=== PATIENT | female | born 1940 | race Caucasian/White ===

== ENCOUNTER → 2018-10-07 14:16 | Outpatient (CLI) | payer MEDICARE, OTHER, SELFPAY ==
--- NOTE | 2018-10-07 14:19 | DI.RAD.S_ITS ---
PROCEDURE: XR THORACIC SPINE 3V INDICATIONS: back pain TECHNIQUE: 2 views of the thoracic spine were acquired. COMPARISON: [facility], , THORACIC SPINE 3 VIEWS, 02/08/2017, 11:35. FINDINGS: Bones: No fractures or dislocations. No suspicious bony lesions. 12 pairs of ribs are noted, and appear intact where visualized. 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 Only a slight worsening from 2017 is identified. Soft tissues: No paravertebral stripe thickening. IMPRESSION: Slight interval worsening of midthoracic degenerative disc disease without subluxation or evidence of prior compression fracture. No acute disease. Dictated by: Jarred Archibald M.D. on 10/07/2018 at 15:08 Approved by: Jarred Archibald M.D. on 10/07/2018 at 15:09
--- NOTE | 2018-10-07 14:19 | DI.RAD.S_ITS ---
PROCEDURE: XR LUMBAR SPINE 2-3V INDICATIONS: back pain TECHNIQUE: 3 views of the lumbar spine were acquired. COMPARISON: [facility], , THORACIC SPINE 3 VIEWS, 02/08/2017, 11:35. FINDINGS: Bones: 5 [id number] vertebrae are present. There is levoscoliotic bony alignment centered at L2,. No vertebral body compression fractures. No suspicious bony lesions. Soft tissues: Overlying bowel gas pattern is normal. No suspicious soft tissue calcifications. IMPRESSION: Mild convex leftward scoliosis centered at L2. A comparison rior study through this area is not available for review. If acute compression fracture is clinically suspected as the underlying cause MR scanning may be warranted. From the lateral view of the lumbosacral spine a compression fracture, however, is not suspected. Dictated by: Jarred Archibald M.D. on 10/07/2018 at 15:09 Approved by: Jarred Archibald M.D. on 10/07/2018 at 15:11
--- NOTE | 2018-10-07 14:19 | DI.RAD.S_ITS ---
PROCEDURE: XR CERVICAL SPINE 2V OR 3V INDICATIONS: back pain TECHNIQUE: Pre-view(s) of the cervical spine were acquired. COMPARISON: None. FINDINGS: Bones: No fractures or dislocations to the T1 level. The lateral masses of C1 appear intact on the odontoid view. No suspicious bony lesions. Soft tissues: No prevertebral soft tissue swelling. IMPRESSION: Moderately severe C5-6 degenerative disc that reduction and endplate osteophyte formation anteriorly. 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 Dictated by: Jarred Archibald M.D. on 10/07/2018 at 15:07 Approved by: Jarred Archibald M.D. on 10/07/2018 at 15:08
--- NOTE | 2018-10-07 14:19 | DI.RAD.S_ITS ---
PROCEDURE: XR SACRUM COCCYX MIN 2V INDICATIONS: back pain TECHNIQUE: 3 views of the sacrum and coccyx acquired. COMPARISON: None. FINDINGS: Bones: No fractures or dislocations but there is mild degenerative sacroiliac osteoarthritis. No suspicious bony lesions. Soft tissues: Visualized bowel gas pattern is normal. No suspicious soft tissue densities. IMPRESSION: No trauma. Mild degenerative change at the sacroiliac joints are symmetric bilaterally without evidence of ankylosing spondylitis or other spondyloarthropathy. Dictated by: Jarred Archibald M.D. on 10/07/2018 at 15:11 Approved by: Jarred Archibald M.D. on 10/07/2018 at 15:11
== END ==
PROVIDERS: Visit Provider Physician Assistant
DX: M54.9 Dorsalgia, unspecified (principal); M50.322 Other cervical disc degeneration at C5-C6 level; M48.02 Spinal stenosis, cervical region; M47.812 Spondylosis without myelopathy or radiculopathy, cervical region; M51.34 Other intervertebral disc degeneration, thoracic region; M41.86 Other forms of scoliosis, lumbar region; M47.818 Spondylosis without myelopathy or radiculopathy, sacral and sacrococcygeal region
CPT/HCPCS: 72040; 72072; 72100; 72220

== ENCOUNTER 2019-01-24 08:13 | Inpatient (IN) | payer MEDICARE, OTHER, SELFPAY ==
[2019-01-24] VITALS (17 sets, daily range): BP systolic 110–187; BP diastolic 62–95; PULSE 60–86; RESP 12–20; TEMP 36–36.9; O2SAT 95–100; BMI 23.9; BMI 24.3
--- NOTE | 2019-01-24 | DI.RAD.S_ITS ---
PROCEDURE: XR HIP W PEL IF DONE LT 2V INDICATIONS: POST OPERATIVE LEFT HIP TECHNIQUE: AP pelvis and lateral view of the left hip hip acquired. COMPARISON: [facility], CR, XR HIP W PEL IF DONE LT 2V, 01/24/2019, 8:30. [facility], CR, XR CHEST 1V, 01/24/2019, 9:56. FINDINGS: Bones: Patient is status post left hip arthroplasty, with hardware components in expected positions. The hip joint appears congruent. The visualized bony structures appear intact. Soft tissues: Overlying postoperative changes are noted. No suspicious soft tissue densities. IMPRESSION: Normal alignment after left total hip arthroplasty. A surgical drain overlies the operative bed. Dictated by: Jarred Archibald M.D. on 01/24/2019 at 20:17 Approved by: Jarred Archibald M.D. on 01/24/2019 at 20:18
--- NOTE | 2019-01-24 08:27 | DI.RAD.S_ITS ---
PROCEDURE: XR HIP W PEL IF DONE LT 2V INDICATIONS: fall/pain L hip TECHNIQUE: AP pelvis with lateral view(s) of the left hip(s). COMPARISON: None. FINDINGS: Bones: There is a comminuted, foreshortened, moderately angulated fracture seen of the mid left femoral neck. No dislocation can be seen. No fractures the bones of the pelvis can be seen. No suspicious lytic or blastic lesions are seen. Age-appropriate bony degenerative changes are seen. Soft tissues: The visualized bowel gas pattern is normal. No suspicious soft tissue calcifications. IMPRESSION: Left femoral neck fracture. If it would be helpful for clinical management decision making, please consider a dedicated hip CT. Dictated by: Ty Miramontes M.D. on 01/24/2019 at 7:53 Approved by: Ty Miramontes M.D. on 01/24/2019 at 7:55
--- NOTE | 2019-01-24 08:28 | PC.NURSE ---
Patient caught foot while getting off boat. [place] an initial sharp pain but was unable to move and ambulate fall. Patient has no shortening or rotation. CMS intact. Pain worse with any movement.
--- NOTE | 2019-01-24 08:34 | ED_ITS ---
HPI - Extremity Injury (Lower) General Chief Complaint: Extremity Injury, Lower Stated Complaint: fell, L hip pain Time Seen by Provider: 01/24/19 08:27 Source: patient and EMS Mode of arrival: EMS Limitations: no limitations History of Present Illness HPI Narrative: Patient states that she caught her foot while stepping off her boat, and fell onto her left hip on the concrete doc surface. Patient states that she felt a sharp pain in her left groin area, but this was short lived and did not really hurt after that unless she tried to move. Patient states she did not get up, because of the pain because she was afraid that if she had broken something she would make it worse by standing on it. The patient states she was not hurt in any other way, other than scrapes and bruises. She states she is otherwise healthy, and does not take any regular medications. Patient has not been ill with anything recently. She denies any other complaints at this time. No back or neck pain. She did not hit her head or lose consciousness. No other extremity pain. She states that her left knee and ankle feel fine. He medics report the patient has had good pulses and sensation during transport. Patient denies rib pain or pain with inspiration. Related Data Home Medications Medication Instructions Recorded Confirmed ibuprofen 1 dose PO PRN PRN 01/24/19 01/24/19 multivitamin 1 tab PO DAILY 01/24/19 01/24/19 multivitamin with minerals 1 tab PO DAILY 01/24/19 01/24/19 [Hair,Skin and Nails] Previous Rx's Medication Instructions Recorded acetaminophen 975 mg PO TID #0 tab 01/25/19 aspirin 81 mg PO BID #0 tab 01/25/19 docusate sodium [DOK] 100 mg PO BID #0 cap 01/25/19 hydrocodone-acetaminophen 1 tab PO Q4HR PRN #40 tab 01/25/19 Allergies Allergy/AdvReac Type Severity Reaction Status Date / Time naproxen Allergy Severe Swelling Verified 01/24/19 16:46 of Lip/Tongue/Throat dimenhydrinate Allergy Intermediate hives Verified 01/24/19 16:46 [From Dramamine] diphenhydramine Allergy Intermediate hives Verified 01/24/19 16:46 [From Tylenol PM] meperidine [From Demerol] Allergy Intermediate hives Verified 01/24/19 16:46 oxycodone Allergy Intermediate hives Verified 01/24/19 16:46 Review of Systems Constitutional Denies chills, Denies fever(s), Denies lethargy and Denies weakness Eyes Denies change in vision, Denies eye discharge, Denies irritation and Denies loss of vision ENT Ears, Nose, Mouth, and Throat: Denies change in voice, Denies neck pain and Denies sore throat Cardiovascular Denies chest pain, Denies irregular heart rhythm, Denies lightheadedness, Denies palpitations, Denies dyspnea, Denies dyspnea on exertion and Denies orthopnea Respiratory Denies cough, Denies dyspnea, Denies dyspnea on exertion and Denies wheezing Gastrointestinal Gastrointestinal: Denies abdominal pain, Denies change in bowel habits, Denies diarrhea, Denies nausea and Denies vomiting Genitourinary Denies hematuria, Denies flank pain, Denies urinary incontinence and Denies urinary urgency Musculoskeletal Denies neck pain Comments: Left hip pain Integumentary/Breasts Denies pruritus, Denies erythema, Denies rash and Denies wounds Neurologic Denies confusion, Denies loss of vision and Denies weakness Psychiatric Denies anxiety, Denies confusion, Denies depression, Denies homicidal ideation and Denies suicidal ideation Endocrine Denies palpitations Hematologic/Lymphatic Denies easy bruising Allergic/Immunologic Denies wheezing PFSH Medical History Healthy adult (Acute) Normal colonoscopy (Acute) Right shoulder injury (Acute) Surgical History (Updated 01/24/19 @ 12:25 by Jovana Kidd RN) No pertinent past surgical history (Acute) Hx of cholecystectomy (Acute) Social History household members: spouse Smoking Status: Never smoker Social History household members: spouse Smoking Status: Never smoker Exam Initial Vital Signs Initial Vital Signs: Vital Signs Temperature 98.2 F 01/24/19 08:12 Pulse Rate 82 01/24/19 08:12 Respiratory Rate 16 01/24/19 08:12 Blood Pressure 187/86 H 01/24/19 08:12 Pulse Oximetry 100 01/24/19 08:12 Const General: cooperative and well developed Nutritional Appearance: well nourished Orientation: alert, awake, oriented x3 and not confused [facility] Head: normocephalic and atraumatic Ears: external ears normal Nose: external nose normal and No nasal discharge Face and sinus: face symmetric and No dry mucous membranes Mouth: oral mucosae normal and moist mucous membranes Teeth and gingiva: dentition normal Eyes General: appearance normal, both eyes and all related structures Eyelids: eyelids normal Conjunctivae: conjunctivae normal Sclera: sclerae normal Pupils: PERRL EOM: EOM intact bilaterally Neck Neck: normal visual inspection, trachea midline, No lymphadenopathy, No midline deformity and No JVD Lymphatic: No lymphedema Chest Chest: normal inspection of the chest Other: No chest/rib tenderness Resp Effort & Inspection: normal respiratory effort, able to speak in complete sentences, no respiratory distress and no use of accessory muscles Auscultation: clear to auscultation bilaterally, no rales, no rhonchi and no wheezes Cardio Rate: regular rate Rhythm: regular rhythm Heart Sounds: no click, no gallops, no murmurs and no rubs Pulses: normal peripheral pulses GI Inspection: non-distended Palpation: soft, no hepatosplenomegaly, No guarding, No pulsatile mass and No tender Back/Spine/Pelvis Back: No CVA tenderness Cervical Spine: cervical ROM normal and No pain with cervical ROM Thoracic/Lumbar Spine: thoracic and lumbar spine normal to inspection Other: There is no tenderness to lateral or AP pressure/compression of the pelvis. Skin General: no rashes or lesions noted, No jaundice and No petechiae Other: Small abrasions on left knee and bilateral bases of palms. Neuro General: alert, oriented x3, gait normal and no focal motor deficits Speech: speech normal Extrem General: full ROM, no clubbing, cyanosis or edema, no pedal edema and no calf tenderness Other: Patient has no point tenderness at any level of her left lower extremity. She has nearly full passive range of motion of her left lower extremity at the hip, though she does complain of some pain with internal rotation, especially with increased flexion at the hip. Patient is able to hold her extended left leg suspended in mid-air while we remove her pants. Psych Appearance: well kempt Mental Status: mental status grossly normal Attitude: cooperative Thought Content: normal and suicidality Judgment: judgment good Course Course Narrative: Patient declined pain medication, and was worked up initially with an x-ray series of her left hip and pelvis. Patient was found to have a left femoral neck fracture. I spoke with Dr. Yelena Bowman of Orthopedics, and she did agree to admit the patient to her service. I discussed the findings with the patient and her , and they were agreeable to the plan for admission and surgical repair. Preoperative labs, chest x-ray, and EKG were performed, and were found to be unremarkable. Orders Ordered: Discontinued Medications Acetaminophen (Tylenol) 975 mg PO TID [facility] Last Admin: 01/25/19 08:54 Dose: 650 mg Admin: 01/24/19 21:39 Dose: 975 mg Hydrocodone Bitart/Acetaminophen ([place] 5/325) 1 tab PO Q4HR PRN PRN Reason: Pain, Moderate (4-6) Last Admin: 01/25/19 13:17 Dose: 1 tab Admin: 01/25/19 08:52 Dose: 1 tab Admin: 01/25/19 04:41 Dose: 1 tab Admin: 01/25/19 00:54 Dose: 1 tab Aspirin (Aspirin Ec) 81 mg PO BID [facility] Last Admin: 01/25/19 08:54 Dose: 81 mg Admin: 01/24/19 21:39 Dose: 81 mg Bupivacaine HCl/Epinephrine Bitart (Sensorcaine 0.25% W/ Epi (Pf)) 60 ml INJ INTRA-OP ONE Stop: 01/24/19 17:12 Last Admin: 01/24/19 18:17 Dose: 60 ml Bupivacaine Liposome (Exparel) 266 mg INJ INTRA-OP ONE Stop: 01/24/19 17:12 Last Admin: 01/24/19 18:17 Dose: 266 mg Povidone Iodine 15 ml/ Sodium (Chloride 250 ml) 0 ml TOP NOW ONE Stop: 01/24/19 17:12 Last Admin: 01/24/19 18:19 Dose: 265 ml Sodium Chloride 250 ml/ (Epinephrine HCl 1 mg) 0 ml IRR INTRA-OP ONE Stop: 01/24/19 18:21 Last Admin: 01/24/19 18:21 Dose: 251 ml Docusate Sodium (Colace) 100 mg PO BID [facility] Last Admin: 01/25/19 08:54 Dose: 100 mg Admin: 01/24/19 21:39 Dose: 100 mg Fentanyl (Sublimaze) 50 mcg IV Q5MIN PRN PRN Reason: Pain, Moderate (4-6) Hydromorphone HCl (Dilaudid) 2 mg IV Q4HR PRN PRN Reason: Pain, Mild (1-3) Last Admin: 01/24/19 14:07 Dose: 1 mg Hydromorphone HCl (Dilaudid) 0.5 mg IV Q5MIN PRN PRN Reason: Pain, Moderate (4-6) Sodium Chloride (Normal Saline 0.9%) 1,000 mls @ 1,000 mls/hr IV BOLUS ONE Stop: 01/24/19 10:51 Last Admin: 01/24/19 11:30 Dose: Not Given Sodium Chloride (Normal Saline 0.9%) 1,000 mls @ 125 mls/hr IV CONT [facility] Last Infusion: 01/24/19 16:10 Dose: 0 mls/hr Admin: 01/24/19 11:30 Dose: 125 mls/hr Lactated Ringer's (Lactated Ringers) 1,000 mls @ 42 mls/hr IV NOW ONE Stop: 01/25/19 16:27 Last Infusion: 01/24/19 19:58 Dose: 0 mls/hr Admin: 01/24/19 16:40 Dose: 42 mls/hr Vancomycin HCl/Dextrose (Vancomycin) 1,000 mg in 200 mls @ 200 mls/hr IV NOW ONE Stop: 01/24/19 17:51 Last Infusion: 01/24/19 17:45 Dose: 0 mls/hr Admin: 01/24/19 16:53 Dose: 200 mls/hr Cefazolin Sodium/Dextrose (Ancef) 2 gm in 100 mls @ 200 mls/hr IV NOW ONE Stop: 01/24/19 17:40 Last Admin: 01/24/19 17:45 Dose: 200 mls/hr Lactated Ringer's (Lactated Ringers) 1,000 mls @ 125 mls/hr IV CONT [facility] Last Infusion: 01/25/19 05:37 Dose: 0 mls/hr Admin: 01/24/19 20:30 Dose: 125 mls/hr Cefazolin Sodium/Dextrose (Ancef) 2 gm in 100 mls @ 200 mls/hr IV Q8H [facility] Stop: 01/25/19 10:29 Last Infusion: 01/25/19 11:38 Dose: 0 mls/hr Admin: 01/25/19 10:21 Dose: 200 mls/hr Infusion: 01/25/19 03:16 Dose: 0 mls/hr Admin: 01/25/19 02:35 Dose: 200 mls/hr Sodium Chloride (Normal Saline 0.9%) 250 mls @ 21 mls/hr IV Q24H PRN PRN Reason: Flush Last Infusion: 01/25/19 11:38 Dose: 0 mls/hr Admin: 01/25/19 10:20 Dose: 21 mls/hr Ibuprofen (Advil) 200 mg PO Q4H PRN PRN Reason: pain Last Admin: 01/25/19 13:30 Dose: 200 mg Admin: 01/25/19 03:53 Dose: 200 mg Metoclopramide HCl (Reglan) 10 mg IV NOW PRN PRN Reason: Nausea And Vomiting Multivitamins (Tab-A-Gregorio) 1 tab PO DAILY [facility] Last Admin: 01/25/19 08:54 Dose: 1 tab Multivitamins/Calcium (Thera M Plus) 1 tab PO DAILY [facility] Last Admin: 01/25/19 08:54 Dose: 1 tab Ondansetron HCl (Zofran) 4 mg IV NOW PRN PRN Reason: Nausea And Vomiting Ondansetron HCl (Zofran) 4 mg IV Q4HR PRN PRN Reason: Nausea And Vomiting Ondansetron HCl (Zofran Odt) 4 mg PO Q4HR PRN PRN Reason: Nausea Polyethylene Glycol (Miralax) 17 gm PO DAILY PRN PRN Reason: Constipation Sodium Chloride (Normal Saline 0.9% Flush) 10 ml IV BID [facility] Last Admin: 01/25/19 10:20 Dose: 10 ml Sodium Chloride (Normal Saline 0.9% Flush) 10 ml IV PRN PRN PRN Reason: Flush Tranexamic Acid (Cyklokapron) 2,000 mg INJ INTRA-OP ONE Stop: 01/24/19 17:12 Last Admin: 01/24/19 19:24 Dose: 1,000 mg Admin: 01/24/19 18:19 Dose: 1,000 mg Vital Signs - 8 hr 01/24/19 08:12 Temperature 98.2 F Pulse Rate 82 Respiratory Rate 16 Blood Pressure 187/86 H Pulse Oximetry 100 MDM - Extremity Injury (Lower) Medical Records Attestation: I reviewed the patient's medical records. Lab Data Attestation: I reviewed the patient's lab results. Result diagrams: 01/25/19 05:05 01/24/19 09:18 Lab Results 01/24/19 01/24/19 01/25/19 Range/Units 09:18 09:18 05:05 WBC 6.5 (4.5-11.0) X10^3/uL RBC 4.36 (4.0-5.2) X10^6/uL Hgb 14.9 13.6 (12.0-16.0) g/dL Hct 44.3 41.1 (36-46) % MCV 101.5 H (80-100) fL MCH 34.0 (26-34) PG MCHC 33.5 (30-36) % RDW 12.9 (11.6-14.8) % Plt Count 255 (150-400) X10^3/uL Neut % (Auto) 78.0 H (50-75) % Lymph % (Auto) 13.8 L (25-40) % Bond % (Auto) 6.9 (3-14) % Eos % (Auto) 0.9 L (2-4) % Baso % (Auto) 0.4 (0-2) % Neut # (Auto) 5000 (2797-5151) /uL Lymph # (Auto) 900 L (4199-8566) /uL Bond # (Auto) 400 (0-900) /uL Eos # (Auto) 100 (0-450) /uL Baso # (Auto) 0 (0-100) /uL Sodium 139 (137-145) mmol/L Potassium 4.2 (3.4-5.1) mmol/L Chloride 106 (98-107) mmol/L Carbon Dioxide 28 (22-32) mmol/L BUN 17 (7-17) mg/dL Creatinine 0.60 (0.52-1.04) mg/dL Estimated GFR > 60.0 (>60) mL/min BUN/Creatinine Ratio 28.3 H (6-22) Glucose 108 (80-110) mg/dL Calcium 9.2 (8.4-10.2) mg/dL Total Bilirubin 0.8 (0.2-1.3) mg/dL AST 36 (14-36) IU/L ALT 16 (9-52) IU/L Alkaline Phosphatase 72 (38-126) U/L Total Protein 6.7 (6.3-8.2) g/dL Albumin 4.1 (3.5-5.0) g/dL Globulin 2.6 (1.7-4.1) g/dL Albumin/Globulin Ratio 1.6 (1.0-2.8) Point of Care Testing Test Results Not applicable Imaging Data Left hip x-ray: Radiologist's impression: PROCEDURE: XR HIP W PEL IF DONE LT 2V INDICATIONS: fall/pain L hip TECHNIQUE: AP pelvis with lateral view(s) of the left hip(s). COMPARISON: None. FINDINGS: Bones: There is a comminuted, foreshortened, moderately angulated fracture seen of the mid left femoral neck. No dislocation can be seen. No fractures the bones of the pelvis can be seen. No suspicious lytic or blastic lesions are seen. Age-appropriate bony degenerative changes are seen. Soft tissues: The visualized bowel gas pattern is normal. No suspicious soft tissue calcifications. IMPRESSION: Left femoral neck fracture. If it would be helpful for clinical management decision making, please consider a dedicated hip CT. Dictated by: Ty Miramontes M.D. on 01/24/2019 at 7:53 Approved by: Ty Miramontes M.D. on 01/24/2019 at 7:55 Chest x-ray: Attestation: I personally reviewed and interpreted this imaging study as follows: My impression: Negative Radiologist's impression: PROCEDURE: XR CHEST 1V INDICATIONS: pre-op TECHNIQUE: One view of the chest was acquired. COMPARISON: None. FINDINGS: Surgical changes and devices: None. Lungs and pleura: Lungs are clear. No pleural effusions or pneumothorax. Mediastinum: Mediastinal contours appear normal. Heart size is normal. Bones and chest wall: No suspicious bony lesions. Overlying soft tissues appear unremarkable. IMPRESSION: No acute process. Dictated by: Yazmin Boyd M.D. on 01/24/2019 at 10:08 Approved by: Yazmin Boyd M.D. on 01/24/2019 at 10:08 ECG Data Attestation: I personally reviewed and interpreted this ECG as follows: (See below) Interpretation: Twelve lead EKG performed January 24, 2019, at 10:17 a.m., as follows: Regular ventricular rhythm with a rate of 64 beats per minute PA interval 166 millisecond QRS duration 82 millisecond QTC interval [address] segment elevation or depression T waves normal morphology and size Interpretation: Normal sinus rhythm, no signs of acute ischemia; normal EKG as interpreted by ED MD. Discharge Plan Departure Patient Disposition: Home Clinical Impression: Fracture of hip Qualifiers: Encounter type: initial encounter Fracture type: closed Laterality: left Qualified Code(s): S72.002A - Fracture of unspecified part of neck of left femur, initial encounter for closed fracture Discharge Date/Time: 01/24/19 11:52 Interventions: ED Discharge Assessment Last Done: 01/24/19 11:52 Admit Date/Time: 01/24/19 09:54 Admit Provider: Yelena Bowman
--- NOTE | 2019-01-24 09:51 | DI.RAD.S_ITS ---
PROCEDURE: XR CHEST 1V INDICATIONS: pre-op TECHNIQUE: One view of the chest was acquired. COMPARISON: None. FINDINGS: Surgical changes and devices: None. Lungs and pleura: Lungs are clear. No pleural effusions or pneumothorax. Mediastinum: Mediastinal contours appear normal. Heart size is normal. Bones and chest wall: No suspicious bony lesions. Overlying soft tissues appear unremarkable. IMPRESSION: No acute process. Dictated by: Yazmin Boyd M.D. on 01/24/2019 at 10:08 Approved by: Yazmin Boyd M.D. on 01/24/2019 at 10:08
[2019-01-24 10:04] LABS: Add Manual Diff / Slide Review NO; Basophils Absolute Auto 0 /uL (0-100); Basophils Percent Auto 0.4 % (0-2); Eosinophils Absolute Auto 100 /uL (0-450); Eosinophils Percent Auto 0.9 % (2-4); Hematocrit 44.3 % (36-46); Hemoglobin 14.9 g/dL (12.0-16.0); Lymphocytes Absolute Auto 900 /uL (1100-4500); Lymphocytes Percent Auto 13.8 % (25-40); Mean Corpuscular HGB Conc 33.5 % (30-36); Mean Corpuscular Volume 101.5 fL (80-100); Monocytes Absolute Auto 400 /uL (0-900); Monocytes Percent Auto 6.9 % (3-14); Neutrophils Absolute Auto 5000 /uL (1500-7000); Platelet Count 255 X10^3/uL (150-400); Red Blood Cell Count 4.36 X10^6/uL (4.0-5.2); Red Cell Distribution Width 12.9 % (11.6-14.8); White Blood Cell Count 6.5 X10^3/uL (4.5-11.0)
[2019-01-24 10:08] LABS: Alanine Aminotransferase 16 IU/L (9-52); Albumin 4.1 g/dL (3.5-5.0); Albumin Globulin Ratio 1.6 (1.0-2.8); Alkaline Phosphatase 72 U/L (38-126); Aspartate Aminotransferase 36 IU/L (14-36); BUN Creatinine Ratio 28.3 (6-22); Bilirubin Total 0.8 mg/dL (0.2-1.3); Blood Urea Nitrogen 17 mg/dL (7-17); Calcium 9.2 mg/dL (8.4-10.2); Carbon Dioxide 28 mmol/L (22-32); Chloride 106 mmol/L (98-107); Estimated Glomerular Filt Rate > 60.0 mL/min (>60); Globulin 2.6 g/dL (1.7-4.1); Glucose 108 mg/dL (80-110); HEMOLYSIS 31 (0-50); Potassium 4.2 mmol/L (3.4-5.1); Sodium 139 mmol/L (137-145); Total Protein 6.7 g/dL (6.3-8.2)
[2019-01-24] MEDS: SODIUM CHLORIDE 0.9% 1,000 ML 125 ML IV (11:30)
--- NOTE | 2019-01-24 13:25 | PC.NURSE ---
Patient requested to clean up wounds on hands from her fall. Abrasions on the L palm and fingers, right pinkie finger palmar surface, and Left knee. Flushed all abrasions with saline, and patted dry with sterile gauze. Applied dressings to the abrasions on the hands only. SN Gilbert.
--- NOTE | 2019-01-24 13:33 | PC.NURSE ---
Day Shift- Report rec'd from MARC Doran in ED at 1148, Pt arrived to room 225 via stretcher at 1200, assisted to bed with 3PA using slider board. Pt's [place] in room. Pt oriented to call light, NPO status. Last ate solid food for dinner around 1999 and last had liquids-coffee at 0600 this AM. Rates 4/10 deep ache pain to left hip area. Discussed pain management plan, no prn's at this time. Awaiting surgery around 1700 at this time, aware that time may change.
[2019-01-24] MEDS: HYDROMORPHONE 2 MG INJ IV (14:07)
[2019-01-24] MEDS: LACTATED RINGERS 1,000 ML 42 ML IV (16:40)
[2019-01-24] MEDS: VANCOMYCIN 1,000 MG/200 ML FROZ.PIGGY 200 MG IV (16:53)
--- NOTE | 2019-01-24 17:24 | P.HP_ITS ---
History of Present Illness Date Patient Seen: 01/24/19 Time Patient Seen: 17:17 Chief complaint: fell, L hip pain Narrative: This is a pleasant 78-year-old female who was getting off of her s ailboat today when her foot got caught and she fell and noted the acute onset of left hip pain. She also notes that she had minor injuries to her hands. She denies other injury. She did not have a loss of consciousness. She denies any dizziness chest pain or difficulties prior to her fall and just tripped on the dock. She notes severe left hip pain. Patient History Medical History Healthy adult (Acute) Normal colonoscopy (Acute) Right shoulder injury (Acute) Surgical History (Updated 01/24/19 @ 12:25 by Jovana Kidd RN) No pertinent past surgical history (Acute) Hx of cholecystectomy (Acute) Social History household members: spouse Smoking Status: Never smoker Family & Social History Social History: household members spouse Prior Living Arrangements House Safety & Behavioral: Feels Safe in Current Yes Environment Been Physically Hurt or No Threatened By a Person Suicidal Ideation Description None Suicide Plan Description No Plan Tobacco & Substance use: Smoking Status Never smoker alcohol intake frequency a few times a week Substance Use Type does not use Meds Home Medications Medication Instructions Recorded Confirmed Type ibuprofen 1 dose PO PRN PRN 01/24/19 01/24/19 History multivitamin 1 tab PO DAILY 01/24/19 01/24/19 History multivitamin with minerals 1 tab PO DAILY 01/24/19 01/24/19 History [Hair,Skin and Nails] Allergies Allergy/AdvReac Type Severity Reaction Status Date / Time naproxen Allergy Severe Swelling Verified 01/24/19 16:46 of Lip/Tongue/Throat dimenhydrinate Allergy Intermediate hives Verified 01/24/19 16:46 [From Dramamine] diphenhydramine Allergy Intermediate hives Verified 01/24/19 16:46 [From Tylenol PM] meperidine [From Demerol] Allergy Intermediate hives Verified 01/24/19 16:46 oxycodone Allergy Intermediate hives Verified 01/24/19 16:46 Review of Systems Review of Systems She notes that she is doing well overall she denies a history of chest pain any respiratory problems any recent GI problems. She has some mild arthritic complaints in her hands but specifically denies a history of arthritic complaints in her hips. She does have a history of multiple surgeries including a wrist surgical repair of her right shoulder for instability associated with the dislocation from skiing prior right ankle fracture history of bilateral Dupuytren's contractures with releases and a history of a hysterectomy and cholecystectomy Exam Vital Signs (past 8 hours): - 01/24/19 11:52 01/24/19 12:00 01/24/19 15:51 Temperature 97.4 F L 97.6 F Pulse Rate 76 79 78 Respiratory Rate 16 16 18 Blood Pressure 153/81 H 118/92 H 148/80 H Pulse Oximetry 99 97 97 01/24/19 16:34 Temperature 98.5 F Pulse Rate 86 Respiratory Rate 19 Blood Pressure 182/87 H Pulse Oximetry 99 Oxygen Delivery Method Room Air Narrative Exam Narrative: HEENT is benign her neck is supple cor regular rate and rhythm lungs are clear she does have an occasional irregular beat there is no murmur her abdomen soft and benign examination of her left lower extremity shows a fore shortened left hip she has pain with attempted range of motion her left hip she has got intact sensation in bilateral lower extremities and is able to tie fire her toe flexors and extensors she has some small abrasions on her left knee but her knee examines stable and she does not have a significant knee effusion skin is intact over the left hip her pelvis is stable Objective Labs Result Diagrams: 01/24/19 09:18 01/24/19 09:18 Labs: Laboratory Results - last 24 hr 01/24/19 01/24/19 09:18 09:18 WBC 6.5 RBC 4.36 Hgb 14.9 Hct 44.3 MCV 101.5 H MCH 34.0 MCHC 33.5 RDW 12.9 Plt Count 255 Neut % (Auto) 78.0 H Lymph % (Auto) 13.8 L [place] % (Auto) 6.9 Eos % (Auto) 0.9 L Baso % (Auto) 0.4 Neut # (Auto) 5000 Lymph # (Auto) 900 L [place] # (Auto) 400 Eos # (Auto) 100 Baso # (Auto) 0 Sodium 139 Potassium 4.2 Chloride 106 Carbon Dioxide 28 BUN 17 Creatinine 0.60 Estimated GFR > 60.0 BUN/Creatinine Ratio 28.3 H Glucose 108 Calcium 9.2 Total Bilirubin 0.8 AST 36 ALT 16 Alkaline Phosphatase 72 Total Protein 6.7 Albumin 4.1 Globulin 2.6 Albumin/Globulin Ratio 1.6 x-rays AP pelvis and a lateral of the left hip shows a displaced and comminuted left femoral neck fracture there is no obvious articular cartilage loss on the acetabulum and her right hip is intact Assessment & Plan Assessment & Plan narrative: Impression is a displaced left femoral neck fracture. The plan is for a cemented left hip hemiarthroplasty. Procedure alternatives risks benefits and potential complications discussed in detail. Risk including but not limited to bleeding, infection, instability with dislocation, fracture or periprosthetic fracture, progression of arthritis on the cup side and long-term limitations and related to mobility as well as risk for DVT or other thrombo embolic complications or anaesthetic complications was all discussed. She understands and agrees arm and proceed with a left cemented hip unipolar. Quality VTE Deep Vein Thrombosis/Pulmonary Embolism Present on Admission: No
--- NOTE | 2019-01-24 17:24 | PM.OP.1 ---
Operative Date/Time/Diagnoses Date of procedure: 01/24/19 Time of procedure: 17:31 Pre-op diagnosis: Left femoral neck fracture Post-op diagnosis: same Procedure & Clinicians Procedure: Left hip unipolar Same procedure as scheduled: Yes Indications: The patient has a history of a fall with a displaced left femoral neck fracture. The risks, benefits and alternatives to surgery were discussed with the patient prior to proceeding. Risks discussed included, but were not limited to, failure to relieve pain, leg length discrepancy, dislocation, stiffness, infection, nerve damage, deep venous thrombosis, pulmonary embolism, stroke, coma, heart attack, permanent paralysis and , as well as the potential need for eventual revision of the prosthetic. Surgeon: Yelena Bowman [employer] Student Coordinator: Bernice Herrera Anesthesia Type: Spinal and Sedation Operative Notes Findings: displaced fracture, good stability Closure Type: primary Prosthetic devices, grafts, tissues, transplants, or devices: [employer]hew 47 cup, +0, size 12 synergy cemented, Applied: drain(s) Estimated Blood Loss (mL): 250 Blood products transfused: none Procedure in detail: The patient was seen in the pre-operative area, where the patient identified the left hip as the operative site and this was marked with my initials. The patient received pre-operative antibiotics and was taken to the operating room and placed on the operative table in the right lateral decubitus position after satisfactory anesthesia. A maritime pilot out was performed. The left leg was prepared from the ankle to the iliac crest with ChloroPrep in the usual fashion and draped through sterile drapes. The hip was approached through an approximately 20 cm incision centered over the greater trochanter and curving gently posteriorly as it went proximally. This was carried sharply to the fascia irasema, which was divided and retracted with a self retaining retractor. The trochanteric bursa was excised with care being taken to avoid the sciatic nerve, which was identified and protected throughout the case. The short external rotators were incised and the capsulomuscular flap was raised and tagged for later repair. The hip was flexed, and a femoral neck osteotomy performed along the residual neck approximately 15 mm above the lesser trochanter. The femoral head was removed with a corkscrew. The femoral head was carefully sized. Retractors were placed around the femur. The canal was opened with a box cutting osteotome, followed by a T handled reamer and a lateralizing reamer. The canal reamers was then used, followed by sequential broaching until there was good stability of the broach in the femur. Retractors were placed to expose the acetabulum. The residual ligamentum teres was resected and the acetabulum was meticulously irrigated with normal saline and then packed with an E tape. The broach was placed in the canal. A trial head and neck were then placed and the hip relocated and checked for leg length and stability. An intraoperative film confirmed the component position and no evidence of fracture. The patient was stable in the position of sleep, of squatting, and could be put through a range of motion with 45 degrees internal rotation without dislocation. At 90 degrees flexion, internal rotation to 70 was possible before dislocation. This was felt to be satisfactory and the appropriate components were opened, and the trials were removed. A distal cement restrictor was placed. The canal was meticulously prepared with pulse lavage and carefully dried. The cement was then mixed and carefully inserted. The final stem was then placed into the prepared femoral canal. A brief Betadine soak was performed. The hip was meticulously irrigated with normal saline. Finally the femoral head was impacted onto the stem. The acetabulum was cleared of all material and the hip relocated one final time. The capsulomuscular flap was then repaired to the greater trochanter though an awl hole using the tag sutures. The short external rotators were repaired with a nonabsorbable suture. A deep drain was placed and brought out anteriorly. The fascia irasema was closed with Vicryl. The subcutaneous layer was closed with barbed sutures and SteriStrips. An Aquacel Ag dressing was applied and the patient was taken to recovery having tolerated the procedure well. Complications: none Condition: stable Disposition: Acute Care Plan for aftercare: The patient will be maintained on a standard posterior hip replacement protocol with weight bearing as tolerated and posterior hip precautions. The patient will receive Aspirin and sequential compression devices for DVT prophylaxis. The patient will be discharged home when safe for the home environment.
[2019-01-24] MEDS: CEFAZOLIN 2 GM/100 ML FROZ.PIGGY IV (17:45)
--- NOTE | 2019-01-24 18:12 | SUR.OPER ---
Right Lateral on padded OR bed. Gel axillary roll. Arms secured on padded armboard with pillow supporting top arm. Padded hip positioner braces x4 - anterior and posterior chest and pelvis. Additional gel pad used anterior pelvis. Gel pad under bottom leg from knee to foot and secured with tape over sheet.
[2019-01-24] MEDS: BUPIVACAINE LIPOSOME 266 MG/20 ML VIAL INJ (18:17)
[2019-01-24] MEDS: BUPIVACAINE 0.25% W/ EPI 30 ML VIAL 60 ML INJ (18:17)
[2019-01-24] MEDS: TRANEXAMIC ACID 1,000 MG VIAL 2000 MG INJ ×2 (18:19→19:24)
[2019-01-24] MEDS: POVIDONE-IODINE 15 ML, SODIUM CHLORIDE 0.9% 250 ML TOP (18:19)
[2019-01-24] MEDS: SODIUM CHLORIDE IRRIG SOLUTION 250 ML, EPINEPHrine 1 MG IRR (18:21)
--- NOTE | 2019-01-24 20:06 | SUR.PHASEI ---
Report called to Katiuska
--- NOTE | 2019-01-24 20:28 | SUR.PHASEI ---
Pt transferred to the floor. IV saline locked. Lt hip drsg cdi. HV patent with scant bloody drainage. VS stable. Report to Jessica.
[2019-01-24] MEDS: LACTATED RINGERS 1,000 ML 125 ML IV (20:30)
[2019-01-24] MEDS: DOCUSATE 100 MG CAPSULE PO (21:39)
[2019-01-24] MEDS: ASPIRIN EC 81 MG TABLET PO (21:39)
[2019-01-24] MEDS: ACETAMINOPHEN 325 MG TABLET 975 MG PO (21:39)
--- NOTE | 2019-01-24 22:40 | PC.NURSE ---
1500- assumed care of pt from outgoing shift. 1610- OR here to get pt. called and updated, he was actually in the buidling. intercepted pt in hallway and went to surgery waiting room during pt's surgery. 2019- pt arrived back from surgery. Pt alert and oriented. uses call blanco. reoriented to room and hospital procedures. Pt given water and apple sauce. took pills ok. uses call blanco. fluids started. denies pain. initially when pt arrived to floor only able to wiggle toes. around 2200- pt able to lift leg at knee. Pt cooperative with nursing staff. updated pt and . talked about discharge possibilities. pt not yet oob. not yet voided. will continue to monitor.
[2019-01-25] MEDS: HYDROCODONE/ACET 5/325 TABLET 1 TAB PO ×4 (00:54→13:17)
[2019-01-25] MEDS: CEFAZOLIN 2 GM/100 ML FROZ.PIGGY IV ×2 (02:35→10:21)
[2019-01-25] MEDS: IBUPROFEN 200 MG TABLET PO ×2 (03:53→13:30)
[2019-01-25 03:57] VITALS: BP 151/76; PULSE 62; RESP 18; TEMP 36.7; O2SAT 97
[2019-01-25 05:35] LABS: Hematocrit 41.1 % (36-46); Hemoglobin 13.6 g/dL (12.0-16.0)
[2019-01-25 07:30] VITALS: BP 132/74; PULSE 66; RESP 16; TEMP 36.5; O2SAT 96
--- NOTE | 2019-01-25 08:19 | P.PN_ITS ---
Subjective Date Patient Seen: 01/25/19 Time Patient Seen: 08:17 Interval history: Patient's pain is mild with current pain meds. Denies fever chills. No nausea vomiting. Patient has not been out of bed yet since surgery. Her is available at home to assist her. Otherwise without complaints this morning. Exam Vital Signs (past 8 hours): - 01/25/19 03:57 Temperature 98.1 F Pulse Rate 62 Respiratory Rate 18 Blood Pressure 151/76 H Pulse Oximetry 97 Oxygen Delivery Method Room Air Narrative Exam Narrative: Pleasant 78-year-old female resting comfortably in bed in no apparent distress. Left hip dressing is clean, dry and intact. Wound VAC intact. Neurovascular status is intact to the left distal lower extremity. Objective Labs Result Diagrams: 01/25/19 05:05 01/24/19 09:18 Labs: Laboratory Results - last 24 hr 01/24/19 01/24/19 01/25/19 09:18 09:18 05:05 WBC 6.5 RBC 4.36 Hgb 14.9 13.6 Hct 44.3 41.1 MCV 101.5 H MCH 34.0 MCHC 33.5 RDW 12.9 Plt Count 255 Neut % (Auto) 78.0 H Lymph % (Auto) 13.8 L [place] % (Auto) 6.9 Eos % (Auto) 0.9 L Baso % (Auto) 0.4 Neut # (Auto) 5000 Lymph # (Auto) 900 L [place] # (Auto) 400 Eos # (Auto) 100 Baso # (Auto) 0 Sodium 139 Potassium 4.2 Chloride 106 Carbon Dioxide 28 BUN 17 Creatinine 0.60 Estimated GFR > 60.0 BUN/Creatinine Ratio 28.3 H Glucose 108 Calcium 9.2 Total Bilirubin 0.8 AST 36 ALT 16 Alkaline Phosphatase 72 Total Protein 6.7 Albumin 4.1 Globulin 2.6 Albumin/Globulin Ratio 1.6 Assessment & Plan Post-op Postoperative Procedures Operation Date: 01/24/19 17:00 Actual Procedures Side Surgeon p Hip Hemiarthroplasty Left Yelena Bowman MD Postop day 1 status post left hip unipolar. Mobilize with physical therapy. Likely discharge home later today. Quality VTE Deep Vein Thrombosis/Pulmonary Embolism Present on Admission: No
[2019-01-25] MEDS: DOCUSATE 100 MG CAPSULE PO (08:54)
[2019-01-25] MEDS: ASPIRIN EC 81 MG TABLET PO (08:54)
[2019-01-25] MEDS: MULTIVITAMIN 1 TABLET 1 TAB PO (08:54)
[2019-01-25] MEDS: MULTIVIT,CALC,MINS/IRON/FOLIC 1 TABLET 1 TAB PO (08:54)
[2019-01-25] MEDS: ACETAMINOPHEN 325 MG TABLET 975 MG PO (08:54)
[2019-01-25] MEDS: SODIUM CHLORIDE 0.9% FLUSH 10 ML IV (10:20)
[2019-01-25] MEDS: SODIUM CHLORIDE 0.9% 250 ML 21 ML IV (10:20)
--- NOTE | 2019-01-25 10:47 | PT.IIE ---
Surgery Performed Operation Date: 01/24/19 17:00 Actual Procedures p Hip Hemiarthroplasty(Left) - Yelena Bowman MD Surgical History (Last Updated 01/24/19 @ 12:25 by Jovana Kidd RN) No pertinent past surgical history (Acute) Hx of cholecystectomy (Acute) Medical History (Last Reviewed 01/24/19 @ 17:18 by Yelena Bowman MD) Healthy adult (Acute) Normal colonoscopy (Acute) Right shoulder injury (Acute) Physical Therapy Inpatient Evaluation/Re-Eval M1 PT/OT-IP Prior Functional Status Start: 01/25/19 13:11 Freq: NEEDED Status: Active Protocol: Document 01/25/19 10:47 AB (Rec: 01/25/19 13:20 AB [email or web address]) Medical Review Prior Functional Status Medical History Reviewed Yes Communication able to make needs known Mobility and Gait pt stated that she is independent with all mobilities and ambulation without AD Social History Household Members spouse Living Arrangements House Number of Floors (Floors) Two Floors Number of Stairs To Enter/Railing? has no steps to enter the house and lives on main level of the house Home Environment Standard Height Toilet Walk in Shower Home Equipment Straight Cane Hand Held Shower Grab Bars Near Toilet Employment Status Retired M2 PT-IP Current Condition Start: 01/25/19 13:11 Freq: NEEDED Status: Active Protocol: Document 01/25/19 10:47 AB (Rec: 01/25/19 13:20 AB [id number]) Physical Therapy Current Condition Current Condition Evaluation Date 01/25/19 Treatment Diagnosis L femoral neck fx s/p hemiarthroplasty; difficulty in walking Onset Date 01/24/19 Precautions Posterior Hip Precautions No Hip Flexion > 90 degrees No Hip Internal Rotation No Hip Adduction Weight Bearing Status Weight Bearing Status Weight Bear as Tolerated M3 PT-IP Subjective Start: 01/25/19 13:11 Freq: NEEDED Status: Active Protocol: Document 01/25/19 10:47 AB (Rec: 01/25/19 13:20 AB [email or web address]) Subjective Physical Therapy Visit Type Type Initial Evaluation Visit Start Time 10:47 Visit Stop Time 11:34 Total Visit Minutes 47 Number of FIBERGLASS LAMINATOR Visits 0 Physical Therapy Visit Comments Patient Comments pt agreeable to do PT Therapy Pain Assessment Pain When Pain Assessed At Rest Pain Present Pain Present Pain Reported Location left hip' Intensity 1 Scale Used Numeric (1 - 10) Pain Management Techniques Apply Cold Re-positioning Timing of Activity with Medications M4 PT-IP Mobility and Gait Start: 01/25/19 13:11 Freq: NEEDED Status: Active Protocol: Document 01/25/19 10:47 AB (Rec: 01/25/19 13:20 AB [email or web address]) PT-Bed Mobility Assessment Supine to Sit Supine to Sit Standby Assistance Scooting Scooting to Edge of Bed Standby Assistance PT-Transfer Assessment Sit to and From Stand Sit to and from Stand Contact Guard Assistance Equipment Transfer Assistive Device Gait Belt Front Wheeled Walker Orthotic/Prosthetic Devices or Brace: No Transfers Transfer Destination Chair Transfer Technique pt ambulated to the chair using FWW Transfer Ability Level of Assist Contact Guard Assistance Gait Assessment Gait Gait Assistance Required: Contact Guard Assist Distance (Feet) 12 Able to Maintain Weight Bearing Status Yes During Gait Assistive Devices Assistive Device Gait Belt Front Wheeled Walker Orthotic/Prosthetic Devices or Brace: No Gait Deviations General Gait Pattern Antalgic Decreased Stride Length Decreased Feet Clearance Narrow Based Gait Step-to Gait Factors Limiting Gait Function Factors Limiting Gait Function Decreased Activity Tolerance Decreased Strength Limited Range of Motion Pain Poor Balance Poor Safety Awareness PT-Balance Assessment Sitting Balance and Reactions Static Sitting Balance Ability Good Dynamic Sitting Balance Ability Good Standing Balance and Reactions Static Standing Balance Ability Fair Dynamic Standing Balance Ability Fair Device Used FWW M5 PT-IP Objective Assessments Start: 01/25/19 13:11 Freq: NEEDED Status: Active Protocol: Document 01/25/19 10:47 AB (Rec: 01/25/19 13:20 AB [email or web address]) Orientation Orientation/Cognition Level of Alertness Alert Orientation Name Place Situation Safety Awareness Decreased Safety Awareness Memory Description Short Term Impaired Gross Range of Motion Lower Extremity ROM Assessment Within Functional Limits Strength Lower Extremity Strength Assessment Left Impaired Knee 3+/5 Coordination Assessment Gross Coordination Gross Coordination WNL Sensation Assessment Sensation Gross Sensation WNL Muscle Tone Muscle Tone WNL Yes M6 PT-IP Treatment Start: 01/25/19 13:11 Freq: NEEDED Status: Active Protocol: Document 01/25/19 10:47 AB (Rec: 01/25/19 13:20 AB [email or web address]) Physical Therapy Treatment Exercises Exercises Heel Slides Education Education Provided Precautions Weight Bearing Status Post-Op Packet Safety M7 PT-IP Assessment and Plan Start: 01/25/19 13:11 Freq: NEEDED Status: Active Protocol: Document 01/25/19 10:47 AB (Rec: 01/25/19 13:20 AB [email or web address]) PT Summary Assessment and Plan Potential Rehabilitation Potential Good Status of Condition at Evaluation Stable Summary Impairments Pain ROM Strength Balance Coordination Sensation Tone Cognition Bed Mobility Transfers Gait Activity Tolerance Assessment Summary pt requiring CGA with mobility and plans to go home with spouse to assist her. caregiver training will be conducted prior to d/c. Goals Bed Mobility Goal Standby Assistance Transfer Goal Standby Assistance Front Wheeled Walker Gait Goal Standby Assistance Front Wheel Walker Gait Distance 150 Days to Meet Goals 5 Frequency of Treatment Frequency Of Treatment Twice a Day Treatment Plan Physical Therapy Treatment Plan Bed Mobility Training Transfer Training Gait Training Therapeutic Exercise Balance Retraining Post Op Education Discharge Planning Hot or Cold Pack Neuromuscular Re-ed Coordination Retraining Manual Therapy Recommendations To Nursing Amount of Assist Needed 1 Person Assist Discharge Recommendations PT Discharge Recommendations Home with Assistance Outpatient PT Equipment Needed for Home Before FWW Discharge
--- NOTE | 2019-01-25 11:21 | PC.NURSE ---
Addendum entered by Jovana Kidd R.N. 01/25/19 13:57: Hemovac drain emptied for approx 35mls bloody fluid. Removed without difficulty by student specialist with this RN's supervision.Site cleansed with NS, folded 4X4 gauze applied and covered with tegaderm. Pt tolerated well. Original Note: Day Shift- Pt A&OX4, able to make her needs known using call light. Rates 1-2/10 pain to left hip incision area. Ice pack on/off throughout shift. Left hip aquacel dressing CDI, Hemovac in place and insertion site secured with tegaderm dressing, Hemovac on compression suction. CMS+, pt can move extremity and slightly lift off bed and bed at the knee. Post op precautions and expectations explained. Pt pre-medicated with 1 tab [place] at 0855 prior to PT session.
[2019-01-25 12:01] VITALS: BP 128/75; PULSE 87; TEMP 36.4; O2SAT 97
--- NOTE | 2019-01-25 14:30 | PT.IPTN ---
Surgery Performed Operation Date: 01/24/19 17:00 Actual Procedures p Hip Hemiarthroplasty(Left) - Yelena Bowman MD Physical Therapy Treatment Note M2 PT-IP Current Condition Start: 01/25/19 13:11 Freq: NEEDED Status: Active Protocol: Document 01/25/19 10:47 AB (Rec: 01/25/19 13:20 AB [id number]) Physical Therapy Current Condition Current Condition Evaluation Date 01/25/19 Treatment Diagnosis L femoral neck fx s/p hemiarthroplasty; difficulty in walking Onset Date 01/24/19 Precautions Posterior Hip Precautions No Hip Flexion > 90 degrees No Hip Internal Rotation No Hip Adduction Weight Bearing Status Weight Bearing Status Weight Bear as Tolerated M3 PT-IP Subjective Start: 01/25/19 13:11 Freq: NEEDED Status: Active Protocol: Document 01/25/19 14:30 GGD (Rec: 01/25/19 15:14 GGD [id number]) Subjective Physical Therapy Visit Type Type Treatment Note Visit Start Time 13:50 Visit Stop Time 14:30 Total Visit Minutes 40 Number of OVEN WORKER Visits 1 Physical Therapy Visit Comments Patient Comments Pt hoping to go home. Therapy Pain Assessment Pain When Pain Assessed At Rest Pain Present Pain Present Pain Reported M4 PT-IP Mobility and Gait Start: 01/25/19 13:11 Freq: NEEDED Status: Active Protocol: Document 01/25/19 14:30 GGD (Rec: 01/25/19 15:14 GGD [id number]) PT-Bed Mobility Assessment Supine to Sit Supine to Sit Standby Assistance Sit to Supine Sit to Supine Standby Assistance Scooting Scooting to Edge of Bed Standby Assistance PT-Transfer Assessment Sit to and From Stand Sit to and from Stand Contact Guard Assistance Equipment Transfer Assistive Device Gait Belt Front Wheeled Walker Orthotic/Prosthetic Devices or Brace: No Transfers Transfer Destination Bed Chair Transfer Ability Level of Assist Contact Guard Assistance Comments Mobility Comments supine to sit from high bed. Gait Assessment Gait Gait Assistance Required: Contact Guard Assist Distance (Feet) 100 Able to Maintain Weight Bearing Status Yes During Gait Assistive Devices Assistive Device Gait Belt Front Wheeled Walker Orthotic/Prosthetic Devices or Brace: No Gait Deviations General Gait Pattern Antalgic Decreased Stride Length Decreased Feet Clearance Narrow Based Gait Step-to Gait Factors Limiting Gait Function Factors Limiting Gait Function Decreased Activity Tolerance Decreased Strength Limited Range of Motion Pain Poor Balance Poor Safety Awareness M5 PT-IP Objective Assessments Start: 01/25/19 13:11 Freq: NEEDED Status: Active Protocol: Document 01/25/19 10:47 AB (Rec: 01/25/19 13:20 AB [email or web address]) Orientation Orientation/Cognition Level of Alertness Alert Orientation Name Place Situation Safety Awareness Decreased Safety Awareness Memory Description Short Term Impaired Gross Range of Motion Lower Extremity ROM Assessment Within Functional Limits Strength Lower Extremity Strength Assessment Left Impaired Knee 3+/5 Coordination Assessment Gross Coordination Gross Coordination WNL Sensation Assessment Sensation Gross Sensation WNL Muscle Tone Muscle Tone WNL Yes M6 PT-IP Treatment Start: 01/25/19 13:11 Freq: NEEDED Status: Active Protocol: Document 01/25/19 14:30 GGD (Rec: 01/25/19 15:14 GGD [id number]) Physical Therapy Treatment Exercises Exercises Ankle Pumps Gluteal Sets Quad Sets Heel Slides Education Education Provided Precautions Other Treatments Other Treatment Performed career specialist training M7 PT-IP Assessment and Plan Start: 01/25/19 13:11 Freq: NEEDED Status: Active Protocol: Document 01/25/19 14:30 GGD (Rec: 01/25/19 15:14 GGD [id number]) PT Summary Assessment and Plan Summary Assessment Summary Pt improved with mobility. She was need min cues for hip precautions. able to demonstrate ability to safely assist patient. Pt safe for home D/C when medically stable . Frequency of Treatment Frequency Of Treatment Twice a Day Treatment Plan Physical Therapy Treatment Plan Bed Mobility Training Transfer Training Gait Training Therapeutic Exercise Balance Retraining Post Op Education Discharge Planning Hot or Cold Pack Neuromuscular Re-ed Coordination Retraining Manual Therapy Recommendations To Nursing Amount of Assist Needed 1 Person Assist Discharge Recommendations PT Discharge Recommendations Home with Assistance Outpatient PT
--- NOTE | 2019-01-25 15:51 | PC.NURSE ---
Patient is a&o x3, pleasant adn cooperative w/ staff and is eager to leave hospital. D/c paper work was reveiwed with patient with this nurse and discussed contents of packet. Patient signed paperwork and was given RX for pain medication. Patient left with spouse via wheelchair down to car w/ hospital staff escort. Patient left in stable condition, DRG: CDI.
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
== END 2019-01-25 15:56 | disposition home or self-care (01) | DRG 470 ==
LOC: ED 08:58 → AC 09:55
PROVIDERS: Admitting Provider Orthopaedic Surgery; Emergency Provider Emergency Medicine; Visit Provider Orthopaedic Surgery
PROC: 0SRS0JZ Replacement of Left Hip Joint, Femoral Surface with Synthetic Substitute, Open Approach (ICD-10-PCS; CPT 27125; principal; 2019-01-24 17:00)
DX: S72.002A Fracture of unspecified part of neck of left femur, initial encounter for closed fracture (principal); V94.0XXA Hitting object or bottom of body of water due to fall from watercraft, initial encounter; Z01.810 Encounter for preprocedural cardiovascular examination
CPT/HCPCS: 36415; 36591; 71045; 73502; 80053; 85014; 85018; 85025; 93005; 93010; 97110; 97116; 97161; 97530; 99283; 99285; C1776; C9290; J0171; J0690; J1100; J1170; J2704; J3370

== ENCOUNTER → 2019-02-22 14:30 | Outpatient (CLI) | payer MEDICARE, OTHER, SELFPAY ==
[2019-01-24 12:29] VITALS: BMI 24.3
== END ==
PROVIDERS: PCP Student in an Organized Health Care Education/Training Program; Visit Provider Student in an Organized Health Care Education/Training Program
DX: Z13.820 Encounter for screening for osteoporosis (principal); M81.0 Age-related osteoporosis without current pathological fracture; Z78.0 Asymptomatic menopausal state
CPT/HCPCS: 77080; 77081

== ENCOUNTER 2021-06-07 13:19 | Emergency (ER) | payer MEDICARE, OTHER, SELFPAY ==
[2019-01-24 12:29] VITALS: BMI 24.3
[2021-06-07] VITALS (21 sets, daily range): BP systolic 149–228; BP diastolic 63–103; PULSE 59–75; RESP 14–26; TEMP 36.6; O2SAT 94–99; BMI 22.4
--- NOTE | 2021-06-07 13:44 | ED.BACK ---
HPI - Back Pain/Injury <Pili Yolie Gilbertdalton, [facility] - Last Filed: 06/07/21 19:48> General Chief Complaint: Back Pain/Injury Stated Complaint: back issues Time Seen by Provider: 06/07/21 13:43 Source: patient Limitations: no limitations History of Present Illness HPI Narrative: 81-year-old female presents to the emergency department for low back pain with spasms mostly on the right that started on 05/27/21. Patient states that she has had this problem before, she has a history of a herniated disc and has had low back pain for years which is never improved. She reports that she usually has an exacerbation 2 to 3 times a year, and this time she did not have much of a trigger. She reports that she was hiking the day before, no backpack, it was a short height, and then the next day she woke up her pain was a 10/10. She states that she has some methocarbamol and Flexeril from Dr. Olmedo for previous back spasms and she has taking them but it has not been helping at all, she reports that they only lasts an hour, and it does not reduce this spasms or prevent them from happening. She reports that this is very limiting for her lifestyle at this time, she reports that she has been laying in bed since this pain started on 05/27/2021 and she still will have spasms common go all day. She has been taking Tylenol and ibuprofen before today for this with some improvement but she is mostly distressed that this keeps happening. She reports that the pain is mostly in the mid back and can travel up to her neck and around the side. She denies any incontinence issues, denies numbness or tingling, denies feeling faint or dizzy, or any nausea or vomiting. She denies any chest pain or chest pressure, the pain does not go into her arm or into her jaw. Related Data Home Medications Medication Instructions Recorded Confirmed ibuprofen 200 mg tablet 1 dose PO PRN PRN 01/24/19 04/05/20 multivitamin with minerals 1 tab PO DAILY 01/24/19 04/05/20 (Hair,Skin and Nails) Previous Rx's Medication Instructions Recorded acetaminophen 325 mg tablet 975 mg PO TID #0 tab 01/25/19 diazepam 5 mg tablet 5 mg PO BEDTIME PRN #10 tab 04/05/20 methocarbamol 750 mg tablet 750 mg PO Q8H PRN #30 tab 04/05/20 hydrocodone 5 mg-acetaminophen 325 1 tab PO BID PRN #10 tab 06/07/21 mg tablet methocarbamol 750 mg tablet 750 mg PO Q8H #14 tab 06/07/21 Allergies Allergy/AdvReac Type Severity Reaction Status Date / Time naproxen Allergy Severe Swelling Verified 04/05/20 14:31 of Lip/Tongue/Throat dimenhydrinate Allergy Intermediate hives Verified 04/05/20 14:31 [From Dramamine] diphenhydramine Allergy Intermediate hives Verified 04/05/20 14:31 [From Tylenol PM] meperidine [From Demerol] Allergy Intermediate hives Verified 04/05/20 14:31 oxycodone Allergy Intermediate hives Verified 04/05/20 14:31 tramadol Allergy Hives Uncoded 04/05/20 14:31 Review of Systems <ART Yu - Last Filed: 06/07/21 19:48> Review of Systems Narrative: General: denies fever, chills Head/Neck: denies headache, neck pain Eyes: denies visual changes, eye pain Cardio: denies chest pain, palpitations, chest pressure, chest tightness, diaphoresis Respiratory: denies shortness of breath, cough GI: denies abdominal pain, nausea, vomiting, or diarrhea : denies dysuria, hematuria MSK: denies joint pain, muscle weakness, reports low back pain with spasms, denies any improvement with methocarbamol at home Skin: denies rash, itching Neuro: denies numbness, tingling Patient History <ART Yu - Last Filed: 06/07/21 19:48> Medical History Normal colonoscopy Right shoulder injury Surgical History Hx of cholecystectomy No pertinent past surgical history Social History household members: spouse Smoking Status: Never smoker Smoking Status: Never smoker alcohol intake frequency: a few times a week Substance Use Type: does not use Exam <ART Yu - Last Filed: 06/07/21 19:48> Narrative Exam Narrative: Independently reviewed vitals signs and nursing notes. General: Awake, alert, nontoxic, no cardiorespiratory distress Head/Neck: Atraumatic, neck full range of motion Eyes: EOMI, conjunctiva normal Nose: nares patent, no rhinorrhea Mouth/Throat: moist mucus membranes, posterior pharynx normal, no oral lesions Cardio: Regular rate and rhythm, no peripheral edema Respiratory: respirations unlabored without wheezing, stridor, or rales. No retractions. GI: Abdomen soft, nontender MSK: Moves all extremities, neurovascularly intact conditioner tender but free of any obvious external abnormalities. Patient exam notes decreased range of motion and muscle spasm, but no CVA tenderness, or vertebral point tenderness. There are no symptoms of cauda equina such as saddle anesthesia, and decreased reflexes, decreased sensation or strength. Skin: Normal capillary refill, no rash Neuro: Normal speech and cognition, normal gait Initial Vital Signs Initial Vital Signs: Vital Signs Temperature 97.8 F 06/07/21 13:22 Pulse Rate 75 06/07/21 13:22 Respiratory Rate 16 06/07/21 13:22 Blood Pressure 213/88 H 06/07/21 13:22 Pulse Oximetry 98 06/07/21 13:22 <Thao Barnes DO - Last Filed: 06/08/21 07:08> Initial Vital Signs Initial Vital Signs: Vital Signs Temperature 97.8 F 06/07/21 13:22 Pulse Rate 75 06/07/21 13:22 Respiratory Rate 16 06/07/21 13:22 Blood Pressure 213/88 H 06/07/21 13:22 Pulse Oximetry 98 06/07/21 13:22 Course <ART Yu - Last Filed: 06/07/21 19:48> Orders Ordered: Discontinued Medications Methocarbamol (Methocarbamol 500 Mg Tablet) 750 mg PO NOW ONE Stop: 06/07/21 15:47 Last Admin: 06/07/21 16:07 Dose: 750 mg Documented by: NBA Methylprednisolone (Methylprednisolone 40 Mg/Ml Vial) 125 mg INJ NOW ONE Stop: 06/07/21 16:27 Last Admin: 06/07/21 16:44 Dose: 125 mg Documented by: NBA Morphine Sulfate (Morphine 2 Mg/Ml Inj) 2 mg IV Q15MIN PRN PRN Reason: Chest Pain Stop: 06/11/21 14:31 Last Admin: 06/07/21 14:47 Dose: 2 mg Documented by: NBA Reevaluation(s) Reevaluation #1: CTA of chest abdomen pelvis rule out dissection was ordered for concern about patient's hypertension. Reevaluation #2: Patient's pain went down to a 4/10 after morphine dose, states feeling much better now. She received 750 methocarbamol and reports that her back pain is mostly gone. When she came back from her CTA she reported that she had some tightness in her chest, her back pain was gone but now having chest tightness so a 12 lead was ordered a repeat troponin and Solu-Medrol 125 was given. Patient is allergic to Benadryl she does not have any hives or any other signs of anaphylaxis at this time. Her chest tightness has gone away, her 12 lead was unchanged from prior, her troponin repeat was negative. Vital Signs Vital signs: Vital Signs - 8 hr 06/07/21 13:22 06/07/21 13:33 06/07/21 13:47 Temperature 97.8 F Pulse Rate 75 Respiratory Rate 16 Blood Pressure 213/88 H 228/99 H 215/100 H Pulse Oximetry 98 06/07/21 14:00 06/07/21 14:13 06/07/21 14:14 Temperature Pulse Rate 72 Respiratory Rate Blood Pressure 209/97 H 210/77 H 186/83 H Pulse Oximetry 94 06/07/21 14:15 06/07/21 14:20 06/07/21 14:30 Temperature Pulse Rate 61 Respiratory Rate 24 Blood Pressure 215/103 H 219/95 H Pulse Oximetry 98 99 06/07/21 15:00 06/07/21 15:01 06/07/21 15:13 Temperature Pulse Rate 71 68 69 Respiratory Rate 26 H 24 20 Blood Pressure 197/83 H 188/63 H Pulse Oximetry 97 97 99 06/07/21 15:30 06/07/21 15:31 06/07/21 16:00 Temperature Pulse Rate 61 62 59 L Respiratory Rate 19 17 20 Blood Pressure 188/81 H 189/81 H Pulse Oximetry 99 98 99 06/07/21 16:30 06/07/21 16:31 06/07/21 17:00 Temperature Pulse Rate 68 68 70 Respiratory Rate 20 24 24 Blood Pressure 164/72 H 164/72 H Pulse Oximetry 99 98 97 06/07/21 17:01 06/07/21 17:30 06/07/21 17:41 Temperature Pulse Rate 72 63 68 Respiratory Rate 18 15 14 Blood Pressure 149/77 H 166/77 H 166/77 H Pulse Oximetry 98 96 98 <Thao Barnes DO - Last Filed: 06/08/21 07:08> Orders Ordered: Discontinued Medications Methocarbamol (Methocarbamol 500 Mg Tablet) 750 mg PO NOW ONE Stop: 06/07/21 15:47 Last Admin: 06/07/21 16:07 Dose: 750 mg Documented by: NBA Methylprednisolone (Methylprednisolone 40 Mg/Ml Vial) 125 mg INJ NOW ONE Stop: 06/07/21 16:27 Last Admin: 06/07/21 16:44 Dose: 125 mg Documented by: NBA Morphine Sulfate (Morphine 2 Mg/Ml Inj) 2 mg IV Q15MIN PRN PRN Reason: Chest Pain Stop: 06/11/21 14:31 Last Admin: 06/07/21 14:47 Dose: 2 mg Documented by: NBA Vital Signs Vital signs: Vital Signs - 8 hr 06/07/21 13:22 06/07/21 13:33 06/07/21 13:47 Temperature 97.8 F Pulse Rate 75 Respiratory Rate 16 Blood Pressure 213/88 H 228/99 H 215/100 H Pulse Oximetry 98 06/07/21 14:00 06/07/21 14:13 06/07/21 14:14 Temperature Pulse Rate 72 Respiratory Rate Blood Pressure 209/97 H 210/77 H 186/83 H Pulse Oximetry 94 06/07/21 14:15 06/07/21 14:20 06/07/21 14:30 Temperature Pulse Rate 61 Respiratory Rate 24 Blood Pressure 215/103 H 219/95 H Pulse Oximetry 98 99 06/07/21 15:00 06/07/21 15:01 06/07/21 15:13 Temperature Pulse Rate 71 68 69 Respiratory Rate 26 H 24 20 Blood Pressure 197/83 H 188/63 H Pulse Oximetry 97 97 99 06/07/21 15:30 06/07/21 15:31 06/07/21 16:00 Temperature Pulse Rate 61 62 59 L Respiratory Rate 19 17 20 Blood Pressure 188/81 H 189/81 H Pulse Oximetry 99 98 99 06/07/21 16:30 06/07/21 16:31 06/07/21 17:00 Temperature Pulse Rate 68 68 70 Respiratory Rate 20 24 24 Blood Pressure 164/72 H 164/72 H Pulse Oximetry 99 98 97 06/07/21 17:01 06/07/21 17:30 06/07/21 17:41 Temperature Pulse Rate 72 63 68 Respiratory Rate 18 15 14 Blood Pressure 149/77 H 166/77 H 166/77 H Pulse Oximetry 98 96 98 MDM - Back Pain/Injury <Pili Cary [facility] - Last Filed: 06/07/21 19:48> Lab Data Result diagrams: 06/07/21 14:27 06/07/21 14:27 Labs: Lab Results 06/07/21 06/07/21 06/07/21 Range/Units 14:27 14:27 16:56 WBC 6.2 (4.5-11.0) X10^3/uL RBC 4.43 (4.0-5.2) X10^6/uL Hgb 15.0 (12.0-16.0) g/dL Hct 45.5 (36-46) % MCV 102.9 H (80-100) fL MCH 33.9 (26-34) PG MCHC 32.9 (30-36) % RDW 12.9 (11.6-14.8) % Plt Count 236 (150-400) X10^3/uL Neut % (Auto) 65.3 (50-75) % Lymph % (Auto) 23.5 L (25-40) % Drew % (Auto) 8.9 (3-14) % Eos % (Auto) 1.7 L (2-4) % Baso % (Auto) 0.6 (0-2) % Neut # (Auto) 4000 (0450-8091) /uL Lymph # (Auto) 1500 (4020-0694) /uL Drew # (Auto) 600 (0-900) /uL Eos # (Auto) 100 (0-450) /uL Baso # (Auto) 0 (0-100) /uL Sodium 139 (137-145) mmol/L Potassium 4.2 (3.4-5.1) mmol/L Chloride 109 H (98-107) mmol/L Carbon Dioxide 27 (22-32) mmol/L BUN 26 H (7-17) mg/dL Creatinine 0.59 (0.52-1.04) mg/dL Estimated GFR > 60.0 (>60) mL/min BUN/Creatinine Ratio 44.1 H (6-22) Glucose 93 (80-110) mg/dL Calcium 10.1 (8.4-10.2) mg/dL Total Bilirubin 0.7 (0.2-1.3) mg/dL AST 24 (14-36) IU/L ALT 15 (<35) IU/L Alkaline Phosphatase 61 (38-126) U/L Total Creatine Kinase 24 L (30-135) U/L CK-MB (CK-2) TNP CK-MB (CK-2) Rel Index TNP Troponin I < 0.012 0.021 (0.01-0.034) ng/mL Total Protein 7.0 (6.3-8.2) g/dL Albumin 4.3 (3.5-5.0) g/dL Globulin 2.7 (1.7-4.1) g/dL Albumin/Globulin Ratio 1.6 (1.0-2.8) Lipase 71 (23-300) U/L Urine Dip Bedside Urine Glucose Negative Bedside Urine Bilirubin - Negative Bedside Urine Ketone +/- 5 Urine Specific [place] 1.030 Bedside Urine Occult Blood - Negative Bedside Urine pH 6.0 Bedside Urine Urobilinogen - Negative Bedside Urine Nitrite - Negative Bedside Urine Leukocytes - Negative Esterase Imaging Data CT scan - abdomen/pelvis: Radiologist's Impression: PROCEDURE: CT ANGIO CHEST ABDOMEN PELVIS INDICATIONS: r/o dissection, rt sided back pain/spasm, hypertension TECHNIQUE: Precontrast 5 mm thick sections acquired from the lung apices to the iliac crests. After the administration of intravenous contrast, 2.5 mm thick sections again acquired from the lung apices to the iliac crests. Maximum intensity projection (MIP) oblique sagittal and coronal reformats were then acquired. For radiation dose reduction, the following was used: automated exposure control. COMPARISON: None. FINDINGS: Chest: Cardiovascular: Heart size is upper limits of normal. No evidence of pulmonary embolism, aortic aneurysm or dissection. Lungs and pleural spaces: In the right upper lobe, there is a spiculated mass lesion measuring 2.3 x 1.0 by 1.6 cm with at least 2 separate smaller adjacent lesions measuring 1.2 x 1.0, and 0.7 mm, carcinoma most consistent with primary carcinoma. Additional 6 mm pleural based nodule noted in the right middle lobe. Left apical pulmonary scarring noted. Lymph nodes: No mediastinal, hilar or axillary adenopathy. Mediastinum: Unremarkable. No hiatal hernia. Thyroid within normal limits. Chest Wall and Bones: Unremarkable. No acute fracture. Abdomen and Pelvis: Liver: Normal in size and attenuation. No contour deformity present. Biliary system: Cholecystectomy. No intra or extrahepatic bile duct dilatation. Pancreas: Unremarkable without mass or inflammation evident. Spleen: Normal in size and density. Adrenals: Normal morphology and density. Reproductive system: Unremarkable as visualized. Urinary system: Normal renal size and attenuation. Bilateral peripelvic cysts present greater on the left. No hydroureter or obstructing lesion identified. Mild underlying hydronephrosis be difficult to exclude. Both kidneys enhance appropriately without evidence of edema. No renal calculi, or solid mass present. Urinary bladder unremarkable. Gastrointestinal system: The bowel appears unremarkable with no evidence of bowel obstruction or inflammation. The stomach appears unremarkable. No findings to suggest acute appendicitis. Multiple diverticula arise from the sigmoid colon without evidence of diverticulitis. Peritoneal spaces: No intra- or retroperitoneal adenopathy. No free air. No free fluid. Vasculature: The IVC, aorta and iliac vasculature are unremarkable. Musculoskeletal: Normal bone mineralization. No acute fractures. Abdominal wall intact without evidence of ventral or inguinal hernias. Multilevel degenerative disc disease present in the lumbar spine resulting in moderate central stenosis at L3-4. Left total hip arthroplasty limits assessment of multiple images in the pelvis. IMPRESSION: 1. No evidence of pulmonary embolism, aortic dissection or aneurysm. 2. Right upper lobe spiculated nodules, consistent with carcinoma. Consider percutaneous biopsy and or surgical consult. Additional right middle lobe smaller pleural based pulmonary nodule noted as well. 3. Multilevel degenerative disc disease with moderate L3-4 central stenosis. 4. Multiple peripelvic renal cysts. Underlying mild hydronephrosis difficult to exclude. No perinephric edema or delayed enhancement. Approved by: Irwin Paris M.D. on 06/07/2021 at 14:54 ECG Data Interpretation: Twelve lead has a normal axis, rhythm is normal sinus without ectopy, rate is 63 beats per minute, no prior ECGs available to review, U waves <1mm present, no ST changes. Repeat 12 lead is unchanged from previous. MDM Narrative Medical decision making narrative: 81-year-old female presents to the ED with chief complaint of mid back pain on the upper right, pain does not radiate, she has had this before, she has a history of lumbar disc herniation unsure of the level. She was hypertensive up to 220 systolic on arrival, she does not take any blood pressure medication, denies any cardiac history whatsoever. Concern for aortic dissection or other cardiac cause of pain, CTA angio chest abdomen pelvis was ordered results showed no evidence of pulmonary embolism, aortic dissection, or aneurysm. Incidental finding of right upper lobe nodules, patient denies any shortness of breath, cough, respiratory symptoms, recommend follow-up with PCP. Multilevel degenerative disc disease was noted at L3 and L4 with moderate central stenosis. Recommend outpatient MRI via follow-up with PCP. Patient complained of chest tightness after returning from CT angio, she was given Solu-Medrol with improvement and tightness went away. She did not develop any hives or anaphylaxis. Twelve lead was repeated as well as a troponin, both were unchanged. Patient received 2 doses of morphine with resolution of her back pain. Multiple causes of mid back pain considered including ME, PE, pneumothorax, pneumonia, aneurysm, aortic dissection, and pleurisy. Patient reports no radiation, no diaphoresis, no provocation with exertion, and no vomiting. Patient was hypertensive during visit, initially blood pressure on the right was 210/100, left arm was 186/83. Patient's blood pressure improved with anxiolytics. She does not take any medications besides a vitamin, heart score is a 2, her back pain is reproducible. Multiple etiologies of back pain considered including; Epidural abscess, cauda equina, mass occupying lesion, and other considered, patient's history and exam are reassuring that these are not her case. Patient is appropriate and amenable to discharge home. Vital signs are stable on repeat examination is unremarkable. Patient has been informed of results. Patient has been given strict return to ER precautions for any new or worsening symptoms. Patient understands to follow up closely with outpatient providers as instructed. Patient understands plan and agrees to discharge home. All questions and concerns answered at this time. <Thao Barnes, DO - Last Filed: 06/08/21 07:08> Lab Data Labs: Lab Results 06/07/21 06/07/21 06/07/21 Range/Units 14:27 14:27 16:56 WBC 6.2 (4.5-11.0) X10^3/uL RBC 4.43 (4.0-5.2) X10^6/uL Hgb 15.0 (12.0-16.0) g/dL Hct 45.5 (36-46) % MCV 102.9 H (80-100) fL MCH 33.9 (26-34) PG MCHC 32.9 (30-36) % RDW 12.9 (11.6-14.8) % Plt Count 236 (150-400) X10^3/uL Neut % (Auto) 65.3 (50-75) % Lymph % (Auto) 23.5 L (25-40) % Drew % (Auto) 8.9 (3-14) % Eos % (Auto) 1.7 L (2-4) % Baso % (Auto) 0.6 (0-2) % Neut # (Auto) 4000 (2328-4901) /uL Lymph # (Auto) 1500 (0050-6171) /uL Drew # (Auto) 600 (0-900) /uL Eos # (Auto) 100 (0-450) /uL Baso # (Auto) 0 (0-100) /uL Sodium 139 (137-145) mmol/L Potassium 4.2 (3.4-5.1) mmol/L Chloride 109 H (98-107) mmol/L Carbon Dioxide 27 (22-32) mmol/L BUN 26 H (7-17) mg/dL Creatinine 0.59 (0.52-1.04) mg/dL Estimated GFR > 60.0 (>60) mL/min BUN/Creatinine Ratio 44.1 H (6-22) Glucose 93 (80-110) mg/dL Calcium 10.1 (8.4-10.2) mg/dL Total Bilirubin 0.7 (0.2-1.3) mg/dL AST 24 (14-36) IU/L ALT 15 (<35) IU/L Alkaline Phosphatase 61 (38-126) U/L Total Creatine Kinase 24 L (30-135) U/L CK-MB (CK-2) TNP CK-MB (CK-2) Rel Index TNP Troponin I < 0.012 0.021 (0.01-0.034) ng/mL Total Protein 7.0 (6.3-8.2) g/dL Albumin 4.3 (3.5-5.0) g/dL Globulin 2.7 (1.7-4.1) g/dL Albumin/Globulin Ratio 1.6 (1.0-2.8) Lipase 71 (23-300) U/L Urine Dip Bedside Urine Glucose Negative Bedside Urine Bilirubin - Negative Bedside Urine Ketone +/- 5 Urine Specific [place] 1.030 Bedside Urine Occult Blood - Negative Bedside Urine pH 6.0 Bedside Urine Urobilinogen - Negative Bedside Urine Nitrite - Negative Bedside Urine Leukocytes - Negative Esterase ECG Data Interpretation: Twelve lead has a normal axis, rhythm is normal sinus without ectopy, rate is 63 beats per minute, no prior ECGs available to review, U waves <1mm present, no ST changes. Repeat 12 lead is unchanged from previous. BOTNICK: EKG 1. Normal sinus rhythm rate 63 MA interval 150 QRS [address] changes no T-wave inversions EKG 2. Sinus rhythm rate 57 no ischemic changes similar to prior Discharge Plan Departure Patient Disposition: Home Clinical Impression: Muscle spasm of back Low back pain Qualifiers: Chronicity: acute Back pain laterality: right Sciatica presence: without sciatica Qualified Code(s): M54.50 - Low back pain, unspecified Hypertension Qualifiers: Hypertension type: unspecified Qualified Code(s): I10 - Essential (primary) hypertension Instructions: DI for Back Spasm Activity Restrictions/Additional Instructions: *You have been diagnosed with back spasms and low back pain. Your CT Angio abdomen/pelvis showed that you have multilevel degenerative disc disease with moderate L3-L4 central stenosis. I recommend follow-up with Dr. Olmedo for an outpatient MRI and physical therapy. Your blood pressure is slightly elevated today and this can cause long-term health problems if not addressed appropriately. Please follow-up with your doctor to discuss your options *What to do: *Please continue to take your regular medications as directed. [x ] New medication prescriptions sent to your pharmacy: [[facility] ] [ ] New medication written as a paper prescription [ ] No new medications given *Please follow up with your primary care provider in 2-3 days, call for an appointment. Let them know you were seen in the Emergency Department and that we ask that you be seen in follow up. We will electronically transmit a record of today's note if your PCP is in our system *If you do not have a primary care provider please contact the [facility] Resource line at [phone]. They will ask some questions about your medical history and help get you set up with a doctor in the community. *Return to Emergency Department if you should have any new, worsening or concerning symptoms, such as [fever greater than 101F, chills, worsening pain, persistent vomiting or other bothersome symptoms] Prescriptions: New hydrocodone-acetaminophen 5-325 mg tablet 1 tab PO BID PRN (Reason: pain) Qty: 10 RF: 0 methocarbamol 750 mg tablet 750 mg PO Q8H Qty: 14 RF: 0 No Action methocarbamol 750 mg tablet 750 mg PO Q8H PRN (Reason: muscle spasm) Qty: 30 RF: 0 diazepam 5 mg tablet 5 mg PO BEDTIME PRN (Reason: muscle spasm) Qty: 10 RF: 0 ibuprofen 200 mg Tablet 1 dose PO PRN PRN (Reason: pain) RF: 0 multivitamin with minerals [Hair,Skin and Nails] Tablet 1 tab PO DAILY RF: 0 acetaminophen 325 mg Tablet 975 mg PO TID Qty: 0 RF: 0 Referrals: [facility] [Provider Group] - As soon as possible Milton Olmedo MD [Primary Care Provider] - As soon as possible (For outpatient MRI and PT, please see CT abdomen/pelvis from ED visit 06/07/21) <Thao Barnes DO - Last Filed: 06/08/21 07:08> [place] [facility] Attending Nicholas Attestation: I was immediately available in the department for consultation. Documentation has been reviewed. I agree with assessment and plan.
--- NOTE | 2021-06-07 14:20 | DI.CT.S_ITS ---
PROCEDURE: CT ANGIO CHEST ABDOMEN PELVIS INDICATIONS: r/o dissection, rt sided back pain/spasm, hypertension TECHNIQUE: Precontrast 5 mm thick sections acquired from the lung apices to the iliac crests. After the administration of intravenous contrast, 2.5 mm thick sections again acquired from the lung apices to the iliac crests. Maximum intensity projection (MIP) oblique sagittal and coronal reformats were then acquired. For radiation dose reduction, the following was used: automated exposure control. COMPARISON: None. FINDINGS: Chest: Cardiovascular: Heart size is upper limits of normal. No evidence of pulmonary embolism, aortic aneurysm or dissection. Lungs and pleural spaces: In the right upper lobe, there is a spiculated mass lesion measuring 2.3 x 1.0 by 1.6 cm with at least 2 separate smaller adjacent lesions measuring 1.2 x 1.0, and 0.7 mm, carcinoma most consistent with primary carcinoma. Additional 6 mm pleural based nodule noted in the right middle lobe. Left apical pulmonary scarring noted. Lymph nodes: No mediastinal, hilar or axillary adenopathy. Mediastinum: Unremarkable. No hiatal hernia. Thyroid within normal limits. Chest Wall and Bones: Unremarkable. No acute fracture. Abdomen and Pelvis: Liver: Normal in size and attenuation. No contour deformity present. Biliary system: Cholecystectomy. No intra or extrahepatic bile duct dilatation. Pancreas: Unremarkable without mass or inflammation evident. Spleen: Normal in size and density. Adrenals: Normal morphology and density. Reproductive system: Unremarkable as visualized. Urinary system: Normal renal size and attenuation. Bilateral peripelvic cysts present greater on the left. No hydroureter or obstructing lesion identified. Mild underlying hydronephrosis be difficult to exclude. Both kidneys enhance appropriately without evidence of edema. No renal calculi, or solid mass present. Urinary bladder unremarkable. Gastrointestinal system: The bowel appears unremarkable with no evidence of bowel obstruction or inflammation. The stomach appears unremarkable. No findings to suggest acute appendicitis. Multiple diverticula arise from the sigmoid colon without evidence of diverticulitis. Peritoneal spaces: No intra- or retroperitoneal adenopathy. No free air. No free fluid. Vasculature: The IVC, aorta and iliac vasculature are unremarkable. Musculoskeletal: Normal bone mineralization. No acute fractures. Abdominal wall intact without evidence of ventral or inguinal hernias. Multilevel degenerative disc disease present in the lumbar spine resulting in moderate central stenosis at L3-4. Left total hip arthroplasty limits assessment of multiple images in the pelvis. IMPRESSION: 1. No evidence of pulmonary embolism, aortic dissection or aneurysm. 2. Right upper lobe spiculated nodules, consistent with carcinoma. Consider percutaneous biopsy and or surgical consult. Additional right middle lobe smaller pleural based pulmonary nodule noted as well. 3. Multilevel degenerative disc disease with moderate L3-4 central stenosis. 4. Multiple peripelvic renal cysts. Underlying mild hydronephrosis difficult to exclude. No perinephric edema or delayed enhancement. Approved by: Irwin Paris M.D. on 06/07/2021 at 14:54
[2021-06-07 14:37] LABS: Add Manual Diff / Slide Review NO; Basophils Absolute Auto 0 /uL (0-100); Basophils Percent Auto 0.6 % (0-2); Eosinophils Absolute Auto 100 /uL (0-450); Eosinophils Percent Auto 1.7 % (2-4); Hematocrit 45.5 % (36-46); Lymphocytes Absolute Auto 1500 /uL (1100-4500); Lymphocytes Percent Auto 23.5 % (25-40); Mean Corpuscular HGB Conc 32.9 % (30-36); Mean Corpuscular Hemoglobin 33.9 PG (26-34); Mean Corpuscular Volume 102.9 fL (80-100); Monocytes Absolute Auto 600 /uL (0-900); Monocytes Percent Auto 8.9 % (3-14); Neutrophils Absolute Auto 4000 /uL (1500-7000); Neutrophils Percent Auto 65.3 % (50-75); Platelet Count 236 X10^3/uL (150-400); Red Blood Cell Count 4.43 X10^6/uL (4.0-5.2); Red Cell Distribution Width 12.9 % (11.6-14.8); White Blood Cell Count 6.2 X10^3/uL (4.5-11.0)
[2021-06-07 14:47] LABS: Alanine Aminotransferase 15 IU/L (<35); Albumin 4.3 g/dL (3.5-5.0); Albumin Globulin Ratio 1.6 (1.0-2.8); Alkaline Phosphatase 61 U/L (38-126); Aspartate Aminotransferase 24 IU/L (14-36); BUN Creatinine Ratio 44.1 (6-22); Bilirubin Total 0.7 mg/dL (0.2-1.3); Blood Urea Nitrogen 26 mg/dL (7-17); Calcium 10.1 mg/dL (8.4-10.2); Carbon Dioxide 27 mmol/L (22-32); Chloride 109 mmol/L (98-107); Creatine Kinase 24 U/L (30-135); Estimated Glomerular Filt Rate > 60.0 mL/min (>60); Globulin 2.7 g/dL (1.7-4.1); Glucose 93 mg/dL (80-110); HEMOLYSIS 22 (0-50); Lipase 71 U/L (23-300); Potassium 4.2 mmol/L (3.4-5.1); Sodium 139 mmol/L (137-145)
[2021-06-07] MEDS: MORPHINE 2 MG/ML INJ IV (14:47)
[2021-06-07 14:59] LABS: Troponin I < 0.012 ng/mL (0.01-0.034)
[2021-06-07] MEDS: methocarbamoL 500 MG TABLET 750 MG PO (16:07)
[2021-06-07 17:24] LABS: Troponin I 0.021 ng/mL (0.01-0.034)
== END 2021-06-07 17:43 | disposition home or self-care (01) ==
PROVIDERS: Emergency Provider Nurse Practitioner Critical Care Medicine; PCP Student in an Organized Health Care Education/Training Program
DX: M62.830 Muscle spasm of back (principal); M54.50 Low back pain, unspecified; I10 Essential (primary) hypertension
CPT/HCPCS: 36415; 71275; 74174; 80053; 81003; 82550; 83690; 84484; 85025; 93005; 99284; J2270; J2920; Q9967

== ENCOUNTER 2022-02-01 10:11 | Emergency (ER) | payer MEDICARE, OTHER, SELFPAY ==
[2019-01-24 12:29] VITALS: BMI 24.3
[2022-02-01 10:54] VITALS: BP 180/92; PULSE 74; RESP 18; TEMP 36.6; O2SAT 98; BMI 22.3
--- NOTE | 2022-02-01 11:40 | ED.BACK ---
HPI - Back Pain/Injury General Chief Complaint: Back Pain/Injury Stated Complaint: BACK PAIN IN SPINE Time Seen by Provider: 02/01/22 11:40 Source: patient and family Mode of arrival: Ambulatory Limitations: no limitations History of Present Illness HPI Narrative: Patient complains of right upper back pain. She was gardening yesterday, pain onset came after she was out gardening. Pain starts in the right neck, extends the right shoulder and down under the scapula. She has pain with inspiration. She has a prior history of right shoulder repair. She has no significant limitations a right shoulder motion. She has no right arm pain. Prior x-ray studies reveal L3-L4 spinal stenosis. She has no lower back pain. She has no numbness or weakness to lower extremities. She has experienced this discomfort previously. She is under the care of it support engineer for chronic respiratory infection. She has no current chest pain, cough or dyspnea. She denies fever chills. She denies focal numbness or weakness. Related Data Home Medications Medication Instructions Recorded Confirmed ibuprofen 200 mg tablet 1 dose PO PRN PRN 01/24/19 06/17/21 multivitamin with minerals 1 tab PO DAILY 01/24/19 06/17/21 (Hair,Skin and Nails) Previous Rx's Medication Instructions Recorded acetaminophen 325 mg tablet 975 mg PO TID #0 tab 01/25/19 methocarbamol 750 mg tablet 750 mg PO Q8H #14 tab 06/07/21 diazepam 5 mg tablet (Valium) 5 mg PO TID-QID PRN #15 tab 02/01/22 Allergies Allergy/AdvReac Type Severity Reaction Status Date / Time naproxen Allergy Severe Swelling Verified 06/10/21 14:13 of Lip/Tongue/Throat dimenhydrinate Allergy Intermediate hives Verified 06/10/21 14:13 [From Dramamine] diphenhydramine Allergy Intermediate hives Verified 06/10/21 14:13 [From Tylenol PM] meperidine [From Demerol] Allergy Intermediate hives Verified 06/10/21 14:13 oxycodone Allergy Intermediate hives Verified 06/10/21 14:13 tramadol Allergy Intermediate Hives Verified 06/15/21 18:54 Review of Systems Review of Systems ROS Unobtainable: All systems reviewed & are unremarkable except as noted in HPI and below Patient History Medical History (Updated 02/01/22 @ 12:07 by Jarvis Hand MD) Lumbar spinal stenosis Normal colonoscopy Right shoulder injury Surgical History History of left hip replacement Hx of cholecystectomy No pertinent past surgical history Social History household members: spouse Smoking Status: Never smoker Smoking Status: Never smoker alcohol intake frequency: a few times a week Substance Use Type: does not use Exam Initial Vital Signs Initial Vital Signs: Vital Signs Temperature 97.8 F 02/01/22 10:54 Pulse Rate 74 02/01/22 10:54 Respiratory Rate 18 02/01/22 10:54 Blood Pressure 180/92 H 02/01/22 10:54 Pulse Oximetry 98 02/01/22 10:54 Const General: cooperative, healthy appearing, comfortable, well developed and well groomed HENMT Head: normal to inspection, normocephalic and atraumatic Neck Neck: normal visual inspection, full ROM and No tender Resp Auscultation: clear to auscultation bilaterally Cardio Rate: regular rate Rhythm: regular rhythm Heart Sounds: S1 normal, S2 normal, no click, no gallops and no murmurs Back/Spine/Pelvis Other: No tenderness along the thoracic or lumbar spine. Right paraspinal tenderness with spasm extending to the right shoulder and right lateral cervical region. She has palpable spasm particularly in the right neck area. Pain is increased with stress on the right shoulder or deep breathing. Skin General: no rashes or lesions noted Neuro General: patient alert, patient awake, patient oriented x3 and no focal motor deficits Extrem General: normal to inspection and full ROM (Both upper extremities.) Other: Normal radial pulses. Psych Mental Status: mental status grossly normal Course Course Course Narrative: The patient received Toradol 30 mg IM prior to discharge. She is discharged on OTC analgesics and Valium for spasm. It is suggested she see her doctor if symptoms persist. Vital Signs Vital signs: Vital Signs - 8 hr 02/01/22 10:54 Temperature 97.8 F Pulse Rate 74 Respiratory Rate 18 Blood Pressure 180/92 H Pulse Oximetry 98 Discharge Plan Departure Patient Disposition: Home Clinical Impression: Strain of right trapezius muscle Instructions: DI for Back Strain or Sprain Activity Restrictions/Additional Instructions: Take Tylenol or Advil as needed for pain. Diazepam every 8 hours as needed for spasm. Walk and stretch frequently. If pain persist for more than a week follow-up with your doctor or return here. Prescriptions: New diazepam [Valium] 5 mg tablet 5 mg PO TID-QID PRN (Reason: muscle spasm) Qty: 15 0RF No Action ibuprofen 200 mg Tablet 1 dose PO PRN PRN (Reason: pain) 0RF multivitamin with minerals [Hair,Skin and Nails] Tablet 1 tab PO DAILY 0RF acetaminophen 325 mg Tablet 975 mg PO TID Qty: 0 0RF methocarbamol 750 mg tablet 750 mg PO Q8H Qty: 14 0RF Referrals: Milton Olmedo MD [Primary Care Provider] -
[2022-02-01] MEDS: KETOROLAC 30 MG/ML VIAL IM (12:12)
[2022-02-01 12:44] VITALS: BP 166/72; PULSE 74; RESP 18; O2SAT 98
--- NOTE | 2022-02-01 12:47 | PC.NURSE ---
Pt provided information from Up to Date regarding muscle strain. This RN printed off information and provided it to the patient.
[2022-02-01 12:48] VITALS: BP 166/72; PULSE 74; RESP 18; O2SAT 98
== END 2022-02-01 12:48 | disposition home or self-care (01) ==
PROVIDERS: Emergency Provider Emergency Medicine; PCP Student in an Organized Health Care Education/Training Program
DX: S29.012A Strain of muscle and tendon of back wall of thorax, initial encounter (principal); Y93.H2 Activity, gardening and landscaping
CPT/HCPCS: 96372; 99283; J1885

== ENCOUNTER → 2022-11-13 12:53 | Outpatient (CLI) | payer MEDICARE, OTHER, SELFPAY ==
[2019-01-24 12:29] VITALS: BMI 24.3
--- NOTE | 2022-11-18 08:22 | PM.PFT.1 ---
Pulmonary Function Test Referral & Results Date Patient Seen: 11/13/22 Requesting provider: Machelle Booker Results: The spirometry demonstrates an FVC of 1.67 L which is 73% of predicted. The FEV1 was measured at 1.08 L which is 64% of predicted. The FEV1/FVC ratio was 65 which is 88% of predicted. Following the administration of bronchodilator there was 13% improvement in FEV1 and a 46% improvement in FEF 25-75%. Lung volumes show an SVC of 1.70 L which is 70% of predicted. The diffusing capacity was measured at 16.56 which is 76% of predicted. No hemoglobin value was provided, so no correction for potential anemia could be made, if appropriate. The maximum voluntary ventilation was reduced Interpretation: This study demonstrates moderate obstructive lung disease based on reduction FEV1 although FEV1/FVC ratio is relatively preserved, there is evidence of benefit following bronchodilator administration There is also evidence of mild restrictive lung disease which may explain some of the abnormality in the FEV1 above There is also evidence of mild disease at the capillary alveolar level Clinical correlation suggested
== END ==
PROVIDERS: Referring Provider Internal Medicine Cardiovascular Disease; Visit Provider Internal Medicine Cardiovascular Disease
DX: R06.02 Shortness of breath (principal); J98.8 Other specified respiratory disorders
CPT/HCPCS: 94060; 94726; 94729

== ENCOUNTER → 2022-12-10 12:31 | Outpatient (CLI) | payer MEDICARE, OTHER, SELFPAY ==
[2019-01-24 12:29] VITALS: BMI 24.3
--- NOTE | 2022-12-10 | DI.ECHO.S_ITS ---
[facility]---------+ [facility] +---------+ : : [address] : [address] [place] : : : : [id number] : : : : Phone: [phone] +---------+ Echocardiogram Report + + :Name: BECKIE SANTILLAN Study Date: 12/10/2022 Height: 62 in : :[facility] ReadingLocation: Weight: 121 lb : : Gender: Female BSA: 1.5 m2 : :: 1940 Age: 82 yrs BP: 114/68 mmHg: :Reason For Study: PALPITATIONS, SHORTNESS OF BREATH HR: 60 : :Ordering Physician: ROBBI, : :PELON Performed By: JUAN FRANCISCO JAY : :Referring: PELON CULP : + + Interpretation Summary The left ventricle is normal in size. The ejection fraction is estimated to be 55-60%. The right ventricle is normal in size and function. There is mild mitral regurgitation. There is moderate tricuspid regurgitation. The right ventricular systolic pressure is estimated to be at least 27 mmHg based on an estimated right atrial pressure of 3 mm Hg. Procedure: A two-dimensional transthoracic echocardiogram with color flow and Doppler was performed. The study quality was technically adequate. There is no prior echocardiogram noted for this patient. The patient was in normal sinus rhythm during the exam. The patient had occasional PVCs during the exam. Left Ventricle: The left ventricle is normal in size. Proximal septal thickening is noted. There is no echo evidence for significant left ventricular outflow tract obstruction. There is no thrombus. Left ventricular systolic function is normal. The ejection fraction is estimated to be 55-60%. There are no focal wall motion abnormalities. Diastolic parameters suggest a relaxation abnormality of the left ventricle, consistent with probable normal filling pressures. Right Ventricle: The right ventricle is normal in size and function. Atria: Both atria are normal in size. There is no Doppler evidence for an interatrial shunt. Mitral Valve: The mitral valve leaflets are mildly calcified. There is mild mitral annular calcification. The mitral valve chordae are thickened and/or calcified. There is mild mitral regurgitation. Aortic Valve: The aortic valve is trileaflet. The aortic valve opens well. The aortic valve is mildly calcified. There is no aortic valve stenosis. There is trace aortic regurgitation. Tricuspid Valve: The tricuspid valve is normal. There is moderate tricuspid regurgitation. The right ventricular systolic pressure is estimated to be at least 27 mmHg based on an estimated right atrial pressure of 3 mm Hg. Pulmonic Valve: The pulmonic valve leaflets are thin and pliable; valve motion is normal. There is mild pulmonic regurgitation. Great Vessels: The aortic root is normal size. The ascending aorta is normal in size. The IVC is of normal diameter and collapses greater than 50% with a sniff. This suggests a low right atrial pressure of 3 mm Hg. Pericardium/ Pleura There is no pericardial effusion. There is an anterior echo-free space consistent with a fat pad. There is no pleural effusion. MMode/2D Measurements & Calculations LVIDd: 3.5 cm LVOT diam: 1.9 cm LVIDs: 2.6 cm Ao root diam: 3.1 cm FS: 25.7 % asc Aorta Diam: 3.3 cm IVSd: 0.70 cm LVPWd: 0.90 cm LV roberts. diameter/BSA (cm/m^2): 2.3 LV sys. diameter/BSA (cm/m^2): 1.7 LA A2 area: 11.2 cm2 RA long axis: 4.5 cm LA A4 area: 11.5 cm2 LA length (vol): 4.6 cm LA vol: 24.0 ml LA vol index: 15.5 ml/m2 LVLs ap4: 5.6 cm LVLd ap2: 6.5 cm LVLs ap2: 4.8 cm TAPSE_phl: 1.8 cm Doppler Measurements & Calculations Ao V2 max: 107.0 cm/sec LVOT Max Ranulfo: 90.1 cm/sec Ao V2 mean: 77.0 cm/sec LV V1 max P.2 mmHg Ao max P.0 mmHg LV V1 VTI: 21.2 cm Ao mean P.0 mmHg COLLINS(I,D): 2.4 cm2 Ao V2 VTI: 24.9 cm COLLINS(V,D): 2.4 cm2 sev ratio: 0.85 COLLINS indexed to BSA (cm^2/m^2): 1.6 MV E max ranulfo: 83.6 cm/sec TR max ranulfo: 243.0 cm/sec MV A max ranulfo: 85.7 cm/sec TR max P.6 mmHg MV E/A: 0.98 PA V2 max: 67.4 cm/sec Med Peak E' Ranulfo: 9.8 cm/sec PA V2 mean: 54.8 cm/sec E/E' med: 8.6 PA mean P.0 mmHg Lat Peak E' Ranulfo: 4.9 cm/sec PA pr(Accel): 31.3 mmHg E/E' lat: 17.0 E/e' average: 12.8 MV dec time: 0.27 sec SV(LVOT): 60.1 ml AV VR_phl: 0.84 COLLINS(VTI)/BSA_phl: 1.6 MV P1/2t-pr_phl: 78.0 msec Reading Physician:02:23 PM
== END ==
PROVIDERS: Referring Provider Internal Medicine Cardiovascular Disease; Visit Provider Internal Medicine Cardiovascular Disease
DX: I08.1 Rheumatic disorders of both mitral and tricuspid valves (principal); R00.2 Palpitations; R06.02 Shortness of breath
CPT/HCPCS: 93306

== ENCOUNTER → 2023-11-29 | Outpatient (CLI) | payer MEDICARE, OTHER, SELFPAY ==
[2019-01-24 12:29] VITALS: BMI 24.3
--- NOTE | 2023-11-29 09:02 | DI.ECHO.S_ITS ---
[facility] +---------+ [facility] +---------+ : : [address] : [address] [place] : : : : [id number] : : : : Phone: [phone] +---------+ Echocardiogram Report + + :Name: BECKIE SANTILLAN Study Date: 11/29/2023 Height: 62 in : :[facility] ReadingLocation: Weight: 120 lb : : Gender: Female BSA: 1.5 m2 : :: 1940 Age: 83 yrs BP: 181/77 mmHg: :Reason For Study: TRICUSPID REGURGITATION : :Ordering Physician: BROOKE, : :GRACIE Performed By: Davi Newell : :Referring: GRACIE VALDEZ : + + Interpretation Summary Normal left ventricle size with ejection fraction 60-65%. Diastolic parameters suggest a relaxation abnormality of the left ventricle, consistent with probable normal filling pressures. Mild aortic valve sclerosis. Mild to moderate tricuspid regurgitation. The right ventricular systolic pressure is estimated to be at least 33 mmHg based on an estimated right atrial pressure of 3 mm Hg. Comparison is made with the echocardiogram of 12/10/2022, no significant change. Procedure: A two-dimensional transthoracic echocardiogram with color flow and Doppler was performed. The study quality was technically adequate. Comparison is made with the echocardiogram of 12/10/2022. The patient was in normal sinus rhythm during the exam. The heart rate ranged between 68-80 bpm during the study. Left Ventricle: The left ventricle is normal in size and wall thickness. The ejection fraction is estimated to be 60-65%. There are no focal wall motion abnormalities. Diastolic parameters suggest a relaxation abnormality of the left ventricle, consistent with probable normal filling pressures. Right Ventricle: The right ventricle is normal in size and function. Atria: The left atrial size is normal. Right atrial size is normal. The interatrial septum grossly appears intact with no obvious evidence for an atrial septal defect. Mitral Valve: The mitral valve is normal in structure and function. There is no mitral valve stenosis. There is trace mitral regurgitation. Aortic Valve: The aortic valve is trileaflet. There is mild aortic valve sclerosis. There is no aortic valve stenosis. There is trace aortic regurgitation. Tricuspid Valve: The tricuspid valve is normal in structure and function. There is no tricuspid stenosis. There is mild to moderate tricuspid regurgitation. The right ventricular systolic pressure is estimated to be at least 33 mmHg based on an estimated right atrial pressure of 3 mm Hg. Pulmonic Valve: The pulmonic valve is not well visualized. There is no pulmonic valvular stenosis. There is a trace or physiologic amount of pulmonic regurgitation. Great Vessels: The aortic root is normal size. The dimensions of the ascending aorta are normal. The IVC is of normal diameter and collapses greater than 50% with a sniff. This suggests a low right atrial pressure of 3 mm Hg. Pericardium/ Pleura There is no pericardial effusion. There is no pleural effusion. MMode/2D Measurements & Calculations LVIDd: 3.7 cm LVOT diam: 2.0 cm LVIDs: 2.3 cm Ao root diam: 2.9 cm FS: 38.4 % asc Aorta Diam: 3.1 cm IVSd: 1.0 cm LVPWd: 0.82 cm LV roberts. diameter/BSA (cm/m^2): 2.4 LV sys. diameter/BSA (cm/m^2): 1.5 LA A2 area: 15.1 cm2 RA long axis: 3.9 cm LA A4 area: 16.9 cm2 RA area: 10.3 cm2 LA length (vol): 4.8 cm RA vol: 22.7 ml LA vol: 45.4 ml RA : 14.8 ml/m2 LA vol index: 29.5 ml/m2 IVC diam: 1.4 cm RVD1 (basal): 2.9 cm RVD2 (mid): 2.5 cm TAPSE: 2.4 cm Doppler Measurements & Calculations Ao V2 max: 104.5 cm/sec LVOT Max Ranulfo: 91.2 cm/sec Ao V2 mean: 73.3 cm/sec LV V1 max P.3 mmHg Ao max P.4 mmHg LV V1 VTI: 19.2 cm Ao mean P.4 mmHg COLLINS(I,D): 2.7 cm2 Ao V2 VTI: 22.6 cm COLLINS(V,D): 2.7 cm2 sev ratio: 0.85 COLLINS indexed to BSA (cm^2/m^2): 1.7 MV E max ranulfo: 66.4 cm/sec TR max ranulfo: 274.9 cm/sec MV A max ranulfo: 107.1 cm/sec TR max P.2 mmHg MV E/A: 0.62 PA V2 max: 77.8 cm/sec Med Peak E' Ranulfo: 5.9 cm/sec PA V2 mean: 53.9 cm/sec E/E' med: 11.2 PA mean P.3 mmHg Lat Peak E' Ranulfo: 4.6 cm/sec PA pr(Accel): 32.8 mmHg E/E' lat: 14.6 E/e' average: 12.9 MV dec time: 0.20 sec SV(LVOT): 60.4 ml Electronically signed by: Medhat Long on Reading Physician:11/29/2023 04:34 PM
--- NOTE | 2023-11-29 22:46 | DI.NM.S_ITS ---
DATE OF SERVICE: 11/29/2023 PROCEDURE: Exercise perfusion study. INDICATIONS: Chest tightness, palpitation, hypertension. The patient underwent exercise stress test. RADIOPHARMACEUTICAL: 25.7 millicuries of technetium-99m Myoview IV was injected at stress and 12.1 millicuries of technetium-99m Myoview IV was injected at rest. CARDIAC STRESS: The patient underwent exercise perfusion study under the supervision of an attending staff. The patient walked on Maksim protocol for 6 minutes and 9 seconds, achieved maximum heart rate of 138, which was 100% of target heart rate. Achieved 7 METS of workload. Peak blood pressure 195/60. TOO -33%. No chest pain or anginal symptoms. Baseline rhythm was sinus. During stress, no convincing ischemic changes seen. After the stress test and in early recovery, the patient has PACs, PVCs, and short run of nonsustained ventricular tachycardia, up to 4 beats, without any sustained ventricular tachycardia. RAW DATA: There is increased subdiaphragmatic activity. Overall adequate intake. GATED STUDY: Stress LV ejection fraction 89 and resting LV ejection fraction 84%. No obvious wall motion abnormalities. Resting end- diastolic volume 45 mL. TID ratio 1.0, which is within normal limits. Lung/heart ratio 0.24, which is within normal limits. MYOCARDIAL PERFUSION SCAN: Stress supine, resting supine and stress prone images were compared to each other. There is normal myocardial perfusion. Summed stress score and summed rest score is zero. CONCLUSION: This is a normal myocardial perfusion study. Good exercise tolerance. TOO -33%. Normal hemodynamic response. No anginal symptoms. No ischemic electrocardiographic changes. However, in the immediate recovery, intermittent premature atrial contractions, premature ventricular contractions and short run of nonsustained ventricular tachycardia without any sustained ventricular tachycardia. Preserved left ventricular function. Overall, low-risk myocardial perfusion scan. Vibha Pritchett - SLICK/arun/CAROLYN doc#: [id number]/job#: [id number] dd: 11/29/2023 16:54:00 dt: 11/29/2023 22:35:00 DICTATING MD/COPIES TO: Machelle Booker MD COPIES MNE: LINDSAY;
== END ==
PROVIDERS: Referring Provider Nurse Practitioner Acute Care; Visit Provider Nurse Practitioner Acute Care
DX: I08.2 Rheumatic disorders of both aortic and tricuspid valves (principal); R07.89 Other chest pain; R00.2 Palpitations; I10 Essential (primary) hypertension
CPT/HCPCS: 78452; 93017; 93306; A9502

== ENCOUNTER 2024-01-09 13:11 | Emergency (ER) | payer MEDICARE, OTHER, SELFPAY ==
[2019-01-24 12:29] VITALS: BMI 24.3
[2024-01-09 13:36] VITALS: BP 197/91; PULSE 69; RESP 16; TEMP 36.2; O2SAT 100; BMI 21.9
--- NOTE | 2024-01-09 14:16 | ED.BACK ---
HPI - Back Pain/Injury <Ovi Kumar PA-C - Last Filed: 01/09/24 14:33> General Chief Complaint: Back Pain/Injury Stated Complaint: severe back pain- flare up Time Seen by Provider: 01/09/24 13:49 Source: patient History of Present Illness HPI Narrative: This is a 83-year-old female presents emergency department due to acute on chronic right-sided back pain. She states that she was history of chronic pain but has not had a flare-up and some time. She states the pain begins in her right trapezius area and radiates down the right side of her spine. She denies any weakness in her upper extremities, saddle paresthesias, urinary or bowel incontinence. There was no injuries to the area and no abnormal behaviors. She states that it just flared up due to ?life?. Related Data Home Medications Medication Instructions Recorded Confirmed ibuprofen 200 mg tablet 1 dose PO PRN PRN pain 01/24/19 06/17/21 Previous Rx's Medication Instructions Recorded acetaminophen 325 mg tablet 975 mg (3 x 325 mg) PO TID #0 tabs 01/25/19 methocarbamol 750 mg tablet 750 mg PO Q8H back spasm #14 tabs 06/07/21 Allergies Allergy/AdvReac Type Severity Reaction Status Date / Time naproxen Allergy Severe Swelling Verified 01/09/24 13:43 of Lip/Tongue/Throat dimenhydrinate Allergy Intermediate hives Verified 01/09/24 13:43 [From Dramamine] diphenhydramine Allergy Intermediate hives Verified 01/09/24 13:43 [From Tylenol PM] meperidine [From Demerol] Allergy Intermediate hives Verified 01/09/24 13:43 oxycodone Allergy Intermediate hives Verified 01/09/24 13:43 tramadol Allergy Intermediate Hives Verified 01/09/24 13:43 Review of Systems <Ovi Kumar PA-C - Last Filed: 01/09/24 14:33> Review of Systems Narrative: GENERAL: Denies chills, fatigue, malaise, fever, sweats. HEENT: Denies sinus pain, ear pain, sore throat, difficulty swallowing, dizziness. RESPIRATORY: Denies dyspnea, cough, wheezing, hemoptysis, sputum. CARDIOVASCULAR: Denies chest pain, palpitations, orthopnea, edema, GASTROINTESTINAL: Denies nausea, vomiting, abdominal pain, diarrhea, constipation, melena. : Denies dysuria, frequency, incontinence, hematuria, urinary retention. MUSCULOSKELETAL: Reports right-sided back pain SKIN: Denies rash, skin lesions, or other NEUROLOGIC: Denies weakness, headache, numbness, change in speech, confusion, seizures, incoordination. PSYCHIATRIC: No concerning psychosocial issues. 12 point review of systems is negative except for those stated above Patient History <Ovi Kumar PA-C - Last Filed: 01/09/24 14:33> Medical History (Updated 01/09/24 @ 14:33 by Ovi Kumar PA-C) Lumbar spinal stenosis Right shoulder injury Normal colonoscopy Surgical History History of left hip replacement Hx of cholecystectomy No pertinent past surgical history Social History (Updated 09/28/22 @ 16:56 by Milton Olmedo MD) household members: spouse Smoking Status: Former smoker Smoking Status: Former smoker alcohol intake frequency: a few times a week Substance Use Type: does not use Exam <Ovi Kumar PA-C - Last Filed: 01/09/24 14:33> Narrative Exam Narrative: GENERAL: Well-developed patient, in mild distress. HEAD: Atraumatic. Normocephalic. EYES: Pupils equal round and reactive. Extraocular motions intact. No scleral icterus. No injection or drainage. ENT: Nose without bleeding, purulent drainage. Throat without erythema, tonsillar hypertrophy or exudate. Airway patent. NECK: Trachea midline. Non tender EXTREMITIES: No edema or joint tenderness. NEURO: AOx3. SKIN: No rash or erythema of visible areas Back: Tenderness to palpation to the right paraspinal muscles, no midline tenderness to palpation Initial Vital Signs Initial Vital Signs: Vital Signs Temperature 97.1 F L 01/09/24 13:36 Pulse Rate 69 01/09/24 13:36 Respiratory Rate 16 01/09/24 13:36 Blood Pressure 197/91 H 01/09/24 13:36 Pulse Oximetry 100 01/09/24 13:36 Oxygen Delivery Method Room Air 01/09/24 13:36 <Thao Barnes DO - Last Filed: 01/14/24 11:16> Initial Vital Signs Initial Vital Signs: Vital Signs Temperature 97.1 F L 01/09/24 13:36 Pulse Rate 69 01/09/24 13:36 Respiratory Rate 16 01/09/24 13:36 Blood Pressure 197/91 H 01/09/24 13:36 Pulse Oximetry 100 01/09/24 13:36 Oxygen Delivery Method Room Air 01/09/24 13:36 Course <Ovi Kumar PA-C - Last Filed: 01/09/24 14:33> Orders Ordered: Discontinued Medications Ketorolac Tromethamine (Ketorolac 30 Mg/Ml Vial) 15 mg IM NOW ONE Stop: 01/09/24 14:27 Last Admin: 01/09/24 14:40 Dose: 15 mg Documented By: RL Vital Signs Vital signs: Vital Signs - 8 hr 01/09/24 13:36 Temperature 97.1 F L Pulse Rate 69 Respiratory Rate 16 Blood Pressure 197/91 H Pulse Oximetry 100 Oxygen Delivery Method Room Air <Thao Barnes DO - Last Filed: 01/14/24 11:16> Orders Ordered: Discontinued Medications Ketorolac Tromethamine (Ketorolac 30 Mg/Ml Vial) 15 mg IM NOW ONE Stop: 01/09/24 14:27 Last Admin: 01/09/24 14:40 Dose: 15 mg Documented By: RL Vital Signs Vital signs: Vital Signs - 8 hr 01/09/24 13:36 Temperature 97.1 F L Pulse Rate 69 Respiratory Rate 16 Blood Pressure 197/91 H Pulse Oximetry 100 Oxygen Delivery Method Room Air MDM - Back Pain/Injury <Ovi Kumar PA-C - Last Filed: 01/09/24 14:33> MDM Narrative Medical decision making narrative: ED course: This is a 83-year-old female with a history of chronic back pain presents emergency department due to acute on chronic thoracic back pain radiating down to her lumbar area. She does not report any concerning symptoms such as weakness or numbness in the upper extremities, saddle paresthesias, incontinence, or any other concerning symptoms. Patient requesting a Toradol injection as it has worked for her in the past. We will also add a Medrol Dosepak. Discussed muscle relaxants but patient declined. CC: Back pain Complicating co-morbidities: Chronic back pain Data collected from: Previous notes Medical records reviewed: Patient was last 2 years ago due to a strain of the trapezius. History of L3-L4 spinal stenosis. History of left hip replacement. Eventually discharged. Differential considered, but not limited to: Spinal cord injury, spinal stenosis, muscular back pain, Exam documented above, pertinent findings include: Tenderness to palpation to the trapezius muscles Lab Test results independently reviewed as above. Pertinent findings: None obtained Imaging studies independently reviewed: None obtained Scores Used: None MIPS Elements: None Consultations: None Treatments: IM Toradol Re-evaluations: None Discussion: Discussed plan with the patient was comfortable with the plan Diagnosis: Muscular back strain Disposition: see below, along with detailed discharge instructions that have been reviewed with patient as well as indications for ED re-evaluation and additional outpatient follow up Discharge Plan Departure Patient Disposition: Home Clinical Impression: Back strain Activity Restrictions/Additional Instructions: Thank you for coming to the [facility] Emergency Department today. The injections give me today should help with the pain. You may also take the oral medications prescribed to help with the flare-ups. I recommend ibuprofen and Tylenol otherwise for the pain. I do recommend you call the physical therapist's office to see if they need referral if so speak to your primary care provider. Please return to the emergency department if you develop any numbness between his legs, weakness or numbness in your upper extremities, incontinence, or any other concerning signs or symptoms. I hope you feel better soon. Please follow up with your primary care provider within a week if your symptoms continue. If you do not have a primary care provider please contact the [facility] Resource line at [phone]. They will ask some questions about your medical history and help you get set up with a provider in the community. Prescriptions: No Action ibuprofen 200 mg Tablet 1 dose PO PRN PRN (Reason: pain) acetaminophen 325 mg Tablet 975 mg PO TID Qty: 0 0RF methocarbamol 750 mg tablet 750 mg PO Q8H Qty: 14 0RF Referrals: Miscellaneous,Doctor, [Primary Care Provider] - Stand Alone Forms: Patient Portal/API ED Sign-out <Thao Barnes DO - Last Filed: 01/14/24 11:16> Cosign ED Attending Nicholas Attestation: I was available for consultation.
[2024-01-09] MEDS: KETOROLAC 30 MG/ML VIAL 15 MG IM (14:40)
[2024-01-09 14:42] VITALS: BP 184/78; PULSE 65; RESP 16; O2SAT 98
== END 2024-01-09 14:45 | disposition home or self-care (01) ==
PROVIDERS: Emergency Provider Physician Assistant Medical
DX: S29.012A Strain of muscle and tendon of back wall of thorax, initial encounter (principal); X58.XXXA Exposure to other specified factors, initial encounter
CPT/HCPCS: 96372; 99283; J1885

== ENCOUNTER 2024-03-29 07:22 | Day surgery (SDC) | payer MEDICARE, OTHER, SELFPAY ==
[2019-01-24 12:29] VITALS: BMI 24.3
[2024-03-29] VITALS (7 sets, daily range): BP systolic 81–154; BP diastolic 33–84; PULSE 72–81; RESP 16–24; TEMP 36.3; O2SAT 94–99
--- NOTE | 2024-03-29 | PATH_ITS ---
[facility] Accession Number: [id number] No. of containers..02 Tissue . 01 Material submitted: . PART A: gastrointestinal site - GASTRIC POLYP PART B: esophagus, E-G Junction - GE JUNCTION . 01 Clinical history: . B: R/O MCALLISTER'S . 01 Diagnosis: Part A: GASTRIC POLYP: Gastric mucosa with mild chronic inflammation. No Helicobacter organisms identified. No intestinal metaplasia, dysplasia, or malignancy identified. See comment. . Specimen Comments: While no neoplasm or definite polyp is seen in the multiple levels examined, in some cases the presence of inflammation may result in a polypoid appearance on endoscopy. Clinical correlation is recommended. . 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 No dysplasia identified. See comment. . 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 Correlation with the endoscopic appearance is recommended for further evaluation. [facility] 04/03/2024 1450 Local . 01 Electronically signed: . Mike Everett MD, Pathologist NPI- [id number] . 01 Gross description: . A. Received in formalin with two patient identifiers and gastric polyp, is a single sesay soft tissue fragment 0.3 cm in greatest dimension. Submitted in cassette A1. . B. Received in formalin with two patient identifiers and GE junction, is a single sesay soft tissue fragment 0.4 cm in greatest dimension. Submitted in cassette B1. ([id number]) /[facility] 04/03/2024 1450 Local . 01 Microscopic: . Part B: GE JUNCTION: An ABPAS stain was performed, demonstrating the presence of focal goblet cell metaplasia. The control stains appropriately. . 01 Pathologist provided ICD-10: K22.70, K29.50 . 01 CPT . 437716, 358521, 870691 Specimen Comment: A courtesy copy of this report has been sent to [phone] Performed at: [address] [id number] MD Mike Everett MD Phone: [phone]
--- NOTE | 2024-03-29 08:34 | PM.PREOP ---
Pre-operative Note Interval Note History & Physical reviewed/Exam performed by Physician: Yes Changes to H&P: No ASA Class (for procedural sedation): II
--- NOTE | 2024-03-29 08:34 | PM.OP.EGD ---
Operative Date/Time/Diagnoses Date of procedure: 03/29/24 Pre-op diagnosis: See indication and findings Procedure & Clinicians Study performed: EGD Indications: Esophageal thickening on CT scan Surgeon: Lucien Haque Procedure Notes Procedure in detail: After informed consent was obtained the patient was placed in left lateral decubitus position. The video upper scope was placed into the oropharynx and with the patient's help swallowed into the esophagus. The esophagus stomach and duodenum were carefully examined. On withdrawal, retroflexed view the GE junction was performed. The scope was removed. The patient tolerated procedure well. Blood loss none Complications none Sedation mac Findings 1. Vascular structure 2 cm long from 26-28 cm. Positive pillow sign. 2. No evidence of any inflammation to the squamocolumnar junction at 39 cm. 3. One small less than 1 cm tongue of tissue extending above 39 cm biopsy x1 4. Small hiatal hernia 3 cm with occasional hematin christianne in the proximal stomach. Retroflexed view negative. 5. Proximal stomach with 3 small polyps. Biopsy of the largest at 5 mm. Normal distal stomach 6. Normal duodenal bulb and sweep Will be in touch regarding her biopsy results. Nothing worrisome is seen.
[2024-03-29] MEDS: LACTATED RINGERS 1,000 ML 100 ML IV (09:00)
== END 2024-03-29 10:04 | disposition home or self-care (01) ==
PROVIDERS: Referring Provider Internal Medicine Gastroenterology; Visit Provider Internal Medicine Gastroenterology
PROC: 0DJ08ZZ Inspection of Upper Intestinal Tract, Via Natural or Artificial Opening Endoscopic (ICD-10-PCS; CPT 43239; principal; 2024-03-29 08:30)
DX: K29.50 Unspecified chronic gastritis without bleeding (principal); K22.70 Barrett's esophagus without dysplasia; K44.9 Diaphragmatic hernia without obstruction or gangrene
CPT/HCPCS: 43239; J2704

== ENCOUNTER → 2024-08-31 | Outpatient (CLI) | payer MEDICARE, OTHER, SELFPAY ==
[2019-01-24 12:29] VITALS: BMI 24.3
--- NOTE | 2024-08-31 11:04 | DI.CT.S_ITS ---
PROCEDURE: CT CHEST WO CON INDICATIONS: pulmonary nodule TECHNIQUE: Noncontrast 2.0-2.5 mm thick sections acquired from the pulmonary apices to the posterior costophrenic angles. 7 mm thick axial MIP and 5 mm coronal and sagittal reformats were then acquired. For radiation dose reduction, the following was used: automated exposure control, adjustment of mA and/or kV according to patient size. COMPARISON: [facility], CT, CT CHEST WITHOUT CONTRAST, 10/11/2023, 10:42. FINDINGS: Image quality: Diagnostic. Lower Neck: No enlarged lymph nodes. Thyroid: No thyroid nodules which require sonographic follow up, per consensus guidelines. Axillae: No enlarged lymph nodes. Chest Wall: Unremarkable. Bones: Unremarkable. Lungs and Pleura: Waxing and waning tree-in-bud and centrilobular pulmonary nodules. For instance, the 9 mm nodule in the lingula now measures 6 mm (series 3, image 161). New posterior left upper lobe 1.1 cm centrilobular nodule (series 3, image 125). Heart: Heart size is stable upper limits of normal. No significant pericardial effusion. Thoracic Vessels: The aorta and pulmonary arteries demonstrate normal size. Mediastinum and Lori: Stable prominent hilar node. Mediastinal lymph nodes by size criteria. Esophagus: Esophageal wall remains prominent but unchanged from previous exam. There may be a small hiatus hernia. Upper Abdomen: Visualized upper abdomen solid organs and bowel loops appear normal. Again incomplete visualization of the left perirenal cyst. IMPRESSION: Waxing and waning solid pulmonary nodule, in a tree-in-bud and centrilobular distribution. 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 Recommend pulmonology referral, if not performed in the past. Six-month follow-up is recommended. Fleischner Society criteria for SOLID lung nodule followup. Nodule size (mm)Low-risk patientHigh-risk patient<6 (single or multiple)No routine followup.Optional CT at 12 months. 6-8 (single or multiple)CT at 6-12 months, then optional CT at 18-24 mo.CT at 6-12 months, then CT at 18-24 months. >8 (single)CT at 3 months, PET-CT, or biopsy. Same as for low-risk pts. >8 (multiple)CT at 3-6 months, then optional CT at 18-24 mo.CT at 3-6 months, then CT at 18-24 months. Fleischner Society criteria for SUB-SOLID lung nodule followup. Solitary pure ground-glass nodules<6 mm (ground glass or part solid)No followup needed. 6 mm or larger (ground glass)CT at 6-12 months to confirm persistence, then CT every 2 years until 5 years.6 mm or larger (part solid)CT at 3-6 months to confirm persistence, then annual CT until 5 years if unchanged and solid component remains <6 mm. Multiple sub-solid nodules<6 mmCT at 3-6 months, then CT consider at 2 & 4 years for high risk patients. [address] at 3-6 months. Subsequent management based on most suspicious lesions. Recommendations do not apply to lung cancer screening, patients with immunosuppression, or patients with known primary cancer. Approved by: Keny Braun M.D. on 09/14/2024 at 13:57
== END ==
LOC: CT 10:51
PROVIDERS: PCP Internal Medicine; Referring Provider Internal Medicine; Visit Provider Internal Medicine
DX: R91.8 Other nonspecific abnormal finding of lung field (principal)
CPT/HCPCS: 71250

== ENCOUNTER → 2025-01-22 14:44 | Outpatient (CLI) | payer MEDICARE, OTHER, SELFPAY ==
[2019-01-24 12:29] VITALS: BMI 24.3
[2025-01-22 15:24] LABS: Hematocrit 46.1 % (36-46); Hemoglobin 15.3 g/dL (12.0-16.0); Mean Corpuscular HGB Conc 33.2 % (30-36); Mean Corpuscular Hemoglobin 35.2 PG (26-34); Mean Corpuscular Volume 105.8 fL (80-100); Platelet Count 250 X10^3/uL (150-400); Red Blood Cell Count 4.35 X10^6/uL (4.0-5.2); Red Cell Distribution Width 13.1 % (11.6-14.8); White Blood Cell Count 5.8 X10^3/uL (4.5-11.0)
[2025-01-22 15:45] LABS: Alanine Aminotransferase 17 IU/L (<35); Albumin 4.4 g/dL (3.5-5.0); Albumin Globulin Ratio 1.6 (1.0-2.8); Alkaline Phosphatase 61 U/L (38-126); Aspartate Aminotransferase 30 IU/L (14-36); BUN Creatinine Ratio 36.2 (6-22); Bilirubin Total 0.8 mg/dL (0.2-1.3); Blood Urea Nitrogen 25 mg/dL (7-17); Carbon Dioxide 27 mmol/L (22-32); Chloride 105 mmol/L (98-107); Cholesterol 257 mg/dL (140-199); Estimated Glomerular Filt Rate > 60 mL/min (>60); Globulin 2.8 g/dL (1.7-4.1); Glucose 100 mg/dL (70-99); HEMOLYSIS 41 (0-50); Potassium 4.5 mmol/L (3.4-5.1); Sodium 139 mmol/L (137-145); Total Protein 7.2 g/dL (6.3-8.2); Triglycerides 94 mg/dL (35-150)
[2025-01-22 15:55] LABS: HDL Cholesterol 134 mg/dL (40-60); LDL Cholesterol Calculated 104 mg/dL (<100)
[2025-01-22 16:12] LABS: TSH w/ Reflex to FT4 2.44 uIU/mL (0.47-4.68)
== END ==
LOC: LAB 14:47
PROVIDERS: PCP Internal Medicine; Referring Provider Internal Medicine; Visit Provider Internal Medicine
DX: I10 Essential (primary) hypertension (principal); J44.9 Chronic obstructive pulmonary disease, unspecified; M81.0 Age-related osteoporosis without current pathological fracture
CPT/HCPCS: 36415; 80053; 80061; 84443; 85027

== ENCOUNTER → 2025-01-30 12:04 | Outpatient (CLI) | payer MEDICARE, OTHER, SELFPAY ==
[2019-01-24 12:29] VITALS: BMI 24.3
--- NOTE | 2025-01-30 12:06 | DI.RAD.S_ITS ---
PROCEDURE: XR DEXA AXIAL SKELETON INDICATIONS: OSTEOPOROSIS SCREENING COMPARISON: None. FINDINGS: Lumbar Spine: L1-L4. Bone mineral density 0.857 g/cm2, T score -1.7. Right Femoral Neck: Bone mineral density 0.482 g/cm2, T score -3.3. Right Hip: Bone mineral density 0.660 g/cm2, T score -2.3. Fracture Risk Calculation (when applicable): 10-year fracture risk of a major osteoporotic fracture 31 percent and of a hip fracture 13 percent. (T score greater or equal to -1.0 to: NORMAL) (T score from -1.1 to -2.4: OSTEOPENIA) (T score less than or equal to -2.5: OSTEOPOROSIS) IMPRESSION: Osteoporosis. Follow-up guidelines as follows: Osteoporosis: Consider a repeat DEXA and Vertebral Fracture Assessment (VFA) exam in 2 years or sooner if medically necessary, to reassess this patient's status. Osteopenia: Consider a repeat DEXA in 2-3 years to reassess this patient's status, or if there is a new clinical indication. Normal: Consider a repeat DEXA in 5 years or sooner, or if there is a new clinical indication. All treatment decisions require clinical judgment and consideration of individual patient factors, including patient preferences, comorbidities, previous drug use, risk factors not captured in the FRAX model (e.g., frailty, falls, vitamin D deficiency, increased bone turnover, interval significant decline in bone density ) and possible under- or over-estimation of fracture risk by FRAX. In addition, the NOF Guide recommends that FDA-approved medical therapies be considered in postmenopausal women and men age >= 50 years with a: * Hip or vertebral (clinical or morphometric) fracture * T-score of <=-2.5 at the spine or hip * Ten-year fracture probability by FRAX of >= 3% for hip fracture or >=20% for major osteoporotic fracture. Dictated by: Linden Beasley M.D. on 01/30/2025 at 21:36 Approved by: Linden Beasley M.D. on 01/30/2025 at 21:38
== END ==
PROVIDERS: PCP Internal Medicine; Referring Provider Internal Medicine; Visit Provider Internal Medicine
DX: M81.0 Age-related osteoporosis without current pathological fracture (principal)
CPT/HCPCS: 77080

== ENCOUNTER → 2025-07-30 09:31 | Outpatient (CLI) | payer MEDICARE, OTHER, SELFPAY ==
[2019-01-24 12:29] VITALS: BMI 24.3
--- NOTE | 2025-07-30 09:32 | DI.ECHO.S_ITS ---
[facility] : : [id number] : [place] : : [id number] : : Phone: [phone] Echocardiogram Report + + :Name: BECKIE SANTILLAN Study Date: 07/30/2025 Height: 62 in : :[facility] ReadingLocation: Weight: 120 lb : : Gender: Female BSA: 1.5 m2 : :: 1940 Age: 85 yrs BP: 184/91 mmHg: :Reason For Study: MODERATE TR : :Ordering Physician: JOSÉ MIGUEL, : :GRACIE Performed By: Davi Newell : :Referring: GRACIE VALDEZ : + + Interpretation Summary 1) Normal left ventricular thickness, size, wall motion, and systolic function (EF 60-65%). 2) Normal right ventricular size and function. 3) There is mild tricuspid regurgitation. 4) Compared to the Echo done 11/29/2023, tricuspid regurgitation has improved from mild-moderate to mild on this study. Procedure: A two-dimensional transthoracic echocardiogram with color flow and Doppler was performed. The study quality was technically good. Comparison is made with the echocardiogram of 11/29/2023. The patient was in normal sinus rhythm during the exam. Left Ventricle: The left ventricle is normal in size. There is normal left ventricular wall thickness. There is no ventricular septal defect visualized. The ejection fraction is estimated to be 55-60%. There are no focal wall motion abnormalities. Diastolic parameters suggest probable normal left ventricular diastolic function and normal filling pressures. Right Ventricle: The right ventricle is normal in size and function. Atria: The left atrial size is normal. Right atrial size is normal. There is no Doppler evidence for an interatrial shunt. Mitral Valve: There is mild mitral annular calcification. There is trace mitral regurgitation. Aortic Valve: The aortic valve is trileaflet. The aortic valve opens well. The aortic valve is slightly calcified. There is trace aortic regurgitation. Tricuspid Valve: The tricuspid valve leaflets are thin and pliable. There is mild tricuspid regurgitation. The right ventricular systolic pressure is estimated to be at least 37 mmHg based on an estimated right atrial pressure of 8 mm Hg. Pulmonic Valve: The pulmonic valve is not well seen, but is grossly normal. There is no pulmonic valvular regurgitation. Great Vessels: The aortic root is normal size. The dimensions of the ascending aorta are normal. The pulmonary artery is normal size. The IVC is dilated (diameter is greater than 2.1 cm) yet it collapses greater than 50% with a sniff. This suggests a right atrial pressure of 8 mm Hg. Pericardium/ Pleura There is no pericardial effusion. There is no pleural effusion. MMode/2D Measurements & Calculations LVIDd: 3.7 cm LVOT diam: 1.9 cm LVIDs: 2.6 cm Ao root diam: 3.0 cm FS: 31.0 % asc Aorta Diam: 3.2 cm EPSS: 0.38 cm Ao Arch Diam (Prox Trans): 2.1 cm IVSd: 0.96 cm LVPWd: 0.87 cm LV roberts. diameter/BSA (cm/m^2): 2.4 LV sys. diameter/BSA (cm/m^2): 1.7 LA A2 area: 16.0 cm2 RA long axis: 4.4 cm LA A4 area: 15.3 cm2 RA area: 15.1 cm2 LA length (vol): 5.0 cm RA vol: 43.7 ml LA vol: 41.6 ml RA : 28.4 ml/m2 LA vol index: 27.0 ml/m2 IVC diam: 2.0 cm RVD1 (basal): 3.2 cm RVD2 (mid): 2.5 cm TAPSE: 2.4 cm Doppler Measurements & Calculations Ao V2 max: 114.3 cm/sec LVOT Max Ranulfo: 74.6 cm/sec Ao V2 mean: 76.5 cm/sec LV V1 max P.2 mmHg Ao max P.2 mmHg LV V1 VTI: 18.6 cm Ao mean P.5 mmHg COLLINS(I,D): 2.2 cm2 Ao V2 VTI: 23.0 cm COLLINS(V,D): 1.8 cm2 sev ratio: 0.81 COLLISN indexed to BSA (cm^2/m^2): 1.4 MV E max ranulfo: 98.3 cm/sec TR max ranulfo: 269.4 cm/sec MV A max ranulfo: 76.2 cm/sec TR max P.0 mmHg MV E/A: 1.3 PA V2 max: 75.7 cm/sec Med Peak E' Ranulfo: 6.6 cm/sec PA V2 mean: 53.4 cm/sec E/E' med: 14.9 PA mean P.3 mmHg Lat Peak E' Ranulfo: 4.3 cm/sec PA pr(Accel): 48.2 mmHg E/E' lat: 22.7 E/e' average: 18.8 MV dec time: 0.14 sec SV(LVOT): 50.5 ml Reading Physician:12:12 PM
== END ==
PROVIDERS: PCP Internal Medicine; Referring Provider Nurse Practitioner Acute Care; Visit Provider Nurse Practitioner Acute Care
DX: I07.1 Rheumatic tricuspid insufficiency (principal); R55 Syncope and collapse
CPT/HCPCS: 93306